=== PATIENT | male | born 2000 | race Hispanic/Latino ===

== ENCOUNTER 2025-04-28 16:42 | Inpatient (IN) | payer SELFPAY ==
[~2025-04-28] VITALS: Ht 167.6 cm; Wt 105.0 kg
[~2025-04-28 16:42] MED LIST: CETI1SOL17 PO; EPIN0.3P3 IJ; FAMO-136 PO; PRED20TA3 PO
[2025-04-28 17:55] LABS: IMMATURE GRANULOCYTE ABSOLUTE 0.02 K/uL (0-1); NUCLEATED RED BLOOD CELLS 0.0 % (0.0-0.19); PLATELET COUNT (AUTO) 207 K/uL (130-400); RED BLOOD CELL COUNT(AUTO) 5.00 MIL/uL (4.50-6.20); RED CELL DISTRIBUTION WIDTH 13.1 % (11.0-15.5); WHITE BLOOD COUNT (AUTO) 5.7 K/uL (4.8-10.8)
[2025-04-28 18:03] LABS: CREATININE 1.0 mg/dL (0.5-1.3); GLOMERULAR FILTR. RATE CALC 108.0 mL/min (>90); GLUCOSE,RANDOM 134.0 mg/dL (70-105); SODIUM SERUM 135.0 mmol/L (136-145); UREA NITROGEN, BLOOD 13.0 mg/dL (7-18)
[2025-04-28 18:12] LABS: ASPARTATE AMINOTRANSFERASE 52.0 U/L (10-37); TOTAL PROTEIN, SERUM 8.4 g/dL (6.0-8.3)
--- NOTE | 2025-04-28 18:13 | ERN ---
General Chief Complaint: Fever Stated Complaint: FEVERS, HIGH HEART RATES AT DR Time Seen by MD: 17:13 Time Seen by Midlevel: 17:13 Source: patient History of Present Illness Initial Comments 24-year-old male who presents to the emergency department due to a headache ongoing x6 days. Patient reports vomiting, cough, fever. Patient reports symptoms are initiated after going to the beach one day. Patient was seen by PCP today and referred to the emergency department for possible meningitis. Patient denies any neck pain, neck stiffness, vision changes, chest pain, recent travel or further associated symptoms. Has been taking ibuprofen and acetaminophen inconsistently. Denies significant past medical history. Allergies: Coded Allergies: No Known Drug Allergies (Unverified Allergy, Unknown, 12/10/21) Home Meds Active Scripts Epinephrine (Epipen 2-Abisai) 0.3 Mg/0.3 Ml Auto.injct, 0.3 MG IJ as needed, #2 CARTRIDGE Prov:EVA JEAN 12/10/21 Cetirizine HCl (Zyrtec Syrup 1 mg/1 ml) 1 Mg/1 Ml Solution, 10 MG PO BID for 5 Days, #120 ML Prov:EVA JEAN 12/10/21 Famotidine (Pepcid) 20 Mg Tablet, 20 MG PO BID, #30 TAB Prov:EVA JEAN 12/10/21 Prednisone (Prednisone) 20 Mg Tablet, 2 TAB PO AD for 5 Days, #10 TAB 0 Refills TAKE 1 TAB BY MOUTH THREE TIMES PER DAY X3 DAYS, THEN TAKE 1 TAB BY MOUTH TWICE A DAY X2 DAYS, THEN TAKE 1 TAB BY MOUTH ONCE A DAY X1 DAY. Prov:EVA JEAN 12/10/21 Past Medical History Past Medical History: No Pertinent History Medical History Other: Obese Past Surgical History: None Family History Family History: Negative Social History Social History: Negative ROS Dictation Constitutional: Positive for fever Negative for chills, and weight loss Eyes: Negative for injury, pain,redness, and discharge ENT: Positive for cough Negative for injury,pain or swelling Cardiovascular: Negative for chest pain, palpitations, and edema Respiratory: Negative for shortness of breath, cough, and wheezing, Abdomen/GI: Positive for vomiting Negative for abdominal pain, nausea, vomiting, diarrhea, and constipation Back: Negative for injury and pain : Negative for painful urination, bleeding or discharge MS/Extremity: Negative for injury and deformity Skin: Negative for rash, and discoloration Neuro: Positive for headache Negative for weakness, numbness, tingling, and seizure Psych: Negative for suicide ideation, homicidal ideation, and hallucinations Physical Exam Physical Exam Dictation General: awake, alert, no acute distress Head/Face: Normocephalic, atraumatic Eyes: PERRL, EOMI, normal conjuctiva ENT: oral cavity clear, TMs clear, oral mucosa moist Neck: Supple, normal range of motion Cardiovascular: RRR, normal S1/S2 Respiratory: CTAB, no respiratory distress, no rales or wheezes Abdomen: Soft, non-tender, non-distended, normal bowel sounds, no guarding or rebound. Skin: Warm, dry, normal turgor, no rash MS/Extremity: Pulses equal, no cyanosis, neurovascular intact, FROM Neuro: COAx4, GCS 15, strength 5/5, CN 2-12 intact, normal cerebellar exam, normal gait, Psych: Normal behavior, mood, and affect normal Results Laboratory and Microbiology Lab and Micro Result Labs Reviewed?: Yes EKG/XRAY/US/CT/MRI X-RAY Comment REASON: Fever ORDERING PHYSICIAN: CANDY BYRNE PROCEDURE: CXR1VW - CHEST 1VW EXAM: CR Chest, 1 View. CLINICAL HISTORY: Fever COMPARISON: None provided. FINDINGS: LUNGS: There is no mass, infiltrate, or acute pulmonary abnormality. PLEURAL SPACES: No evidence of pleural effusion or pneumothorax. MEDIASTINUM: The cardiomediastinal silhouette is within normal limits. BONES: No aggressive appearing osseous lesion seen. IMPRESSION: No acute cardiopulmonary pathology is evident. /[place] DICTATED BY: WOODROW MEDINA Jr., MD DATE: 04/28/252109 CT Scan Comment REASON: Headache ORDERING PHYSICIAN: CANDY BYRNE PROCEDURE: HEAD WO - CT HEAD/BRAIN W/O CONTRAST EXAM: CT Head Without IV contrast. CLINICAL HISTORY: Headache TECHNIQUE: Axial computed tomography images of the head/brain without intravenous contrast. CT scan done according to ALARA (as low as reasonably achievable). COMPARISON: None provided. FINDINGS: BRAIN: No evidence of acute hemorrhage. No mass lesion. No CT evidence for acute territorial infarct. No midline shift or extra-axial collections. VENTRICLES: No hydrocephalus. ORBITS: The orbits are unremarkable. SINUSES AND MASTOIDS: The paranasal sinuses and mastoid air cells are clear. BONES: No fracture. SOFT TISSUES: Unremarkable. IMPRESSION: No acute intracranial abnormality. /[place] DICTATED BY: RAYNE CHANEL MD DATE: 04/28/252107 MDM MDM: Differential diagnosis: Sepsis, viral illness, UTI, pneumonia Rationale: 24-year-old male who presents to the emergency department due to a headache ongoing x6 days. Patient reports vomiting, cough, fever. Patient reports symptoms are initiated after going to the beach one day. Patient was seen by PCP today and referred to the emergency department for possible meningitis. Patient denies any neck pain, neck stiffness, vision changes, chest pain, recent travel or further associated symptoms. Has been taking ibuprofen and acetaminophen inconsistently. Denies significant past medical history. Per initial vitals, fever and tachycardia, patient triggered sepsis. Labs obtained CBC is nonspecific. Chemistry indicates dehydration with hypochloremia 99, hyponatremia 135. Lactic acid 2.8, CRP 81, procalcitonin 0.90. UA negative for urinary tract infection. Influenza, SARs, strep negative. Chest x-ray indicates no acute cardiopulmonary abnormalities. Patient received IV fluids 30 mL/kg and acetaminophen. On re-examination no headache improvement therefore head CT was obtained with no acute intracranial abnormalities. Ketorolac administered, however on re-examination patient continued with headache. Pending febrile agglutinin test. Findings were discussed with patient and mother, low suspicion for meningitis. Lumbar puncture was discussed and offered to patient and mother, they agreed with admission but decided to hold off on the lumbar puncture. Case discussed with hospitalist who accepted admission. Previous outside records reviewed: Old ER visits. Risk of complication and/or morbidity or mortality of patient management: None Medications-Per medication reconciliation Need for hospitalization: Patient does meet criteria for hospitalization. Need for emergency major/minor surgery: No There are no social concerns with this patient. Prescription drug management Prescriptions will include symptomatic care Patient's prior external medical records from other ER visits were reviewed by me as indicated. Prior testing and results from previous visits were reviewed. Prior tests were taken into account with medical decision making and resource utilization, independent historian/historians were used to obtain complete medical history. I independently interpreted the test that were performed, results were reviewed by me and considered findings on radiology if ordered. Medical management and examination interpretation discussions were had by me with other qualified healthcare professionals as indicated for the patient's care. ED Course DX & DISP Disposition: Inpatient Decision to Admit Date: Apr 28, 2025 Departure Impression: Primary Impression: Sepsis Additional Impressions: Headache, Dehydration Condition: Stable Referrals: MAUREEN CERRATO MD (PCP) I performed the substantive portion of the visit. I have reviewed and personally made and approve the management plan that is documented in the notes by myself or the MARTIN. I acknowledge full responsibility for the patient's management plan. CANDY BYRNE Apr 28, 2025 18:13
--- NOTE | 2025-04-28 18:30 | NUR ---
PT MOVED FORM LOBBY INTO FAST RACK AT THIS TIME. ASSUMED CARE AT THIS TIME
[2025-04-28 19:04] LABS: RAPID GROUP A STREP negative (NEGATIVE)
[2025-04-28 19:09] LABS: APPEARANCE,URINE CLEAR (CLEAR); GLUCOSE, URINE (UA) NEGATIVE (NEGATIVE); LEUKOCYTE ESTERASE ,URINE NEGATIVE Leu/uL (NEGATIVE); NITRATE,URINE NEGATIVE (NEGATIVE); OCCULT BLOOD,URINE SMALL (NEGATIVE)
[2025-04-28] MEDS: [UNRECOGNIZED DRUG - OTHER] IV ONE (19:11)
[2025-04-28 19:15] LABS: COVID19 (SARS ANTIGEN RAPID) PRESUMPTIVE NEGATIVE (NEGATIVE); INFLUENZA TYPE A Negative For Type A (NEGATIVE); INFLUENZA TYPE B Negative For Type B (NEGATIVE)
--- NOTE | 2025-04-28 20:10 | HMCIMG ---
EXAM: CT Head Without IV contrast. CLINICAL HISTORY: Headache TECHNIQUE: Axial computed tomography images of the head/brain without intravenous contrast. CT scan done according to ALARA (as low as reasonably achievable). COMPARISON: None provided. FINDINGS: BRAIN: No evidence of acute hemorrhage. No mass lesion. No CT evidence for acute territorial infarct. No midline shift or extra-axial collections. VENTRICLES: No hydrocephalus. ORBITS: The orbits are unremarkable. SINUSES AND MASTOIDS: The paranasal sinuses and mastoid air cells are clear. BONES: No fracture. SOFT TISSUES: Unremarkable. IMPRESSION: No acute intracranial abnormality. /[place]
--- NOTE | 2025-04-28 20:11 | HMCIMG ---
EXAM: CR Chest, 1 View. CLINICAL HISTORY: Fever COMPARISON: None provided. FINDINGS: LUNGS: There is no mass, infiltrate, or acute pulmonary abnormality. PLEURAL SPACES: No evidence of pleural effusion or pneumothorax. MEDIASTINUM: The cardiomediastinal silhouette is within normal limits. BONES: No aggressive appearing osseous lesion seen. IMPRESSION: No acute cardiopulmonary pathology is evident. /[place]
--- NOTE | 2025-04-28 21:59 | HP ---
History of Present Illness Reason for Visit: fever History of Present Illness Mr. Siddiqui is a 24-year-old male that was seen and examined today on 04/28/2025. Patient is a good historian of personal health Patient states that he came to the emergency department with a chief complaint of fever. Onset was six days ago. Location is head. Duration is on and off. Character is described as feeling hot. There was no alleviating factors. There was no aggravating factors. Patient reports an associated headache. Past Medical History ADDITIONAL PAST MEDICAL HISTORY: [Denies] SOCIAL HISTORY: [Negative for smoking, alcohol use, drug use. Patient lives with his mom, Jerrica Ross. Patient is typically independent of all his ADLs. Patient denies difficulty pain is bills.] SURGICAL HISTORY: [Denies] Review of Systems General: Fever; No Chills, No Night Sweats, No Fatigue, No Malaise, No Appetite, No Other HEENT: No Head Aches, No Visual Changes, No Eye Pain, No Ear Pain, No Dysphasia, No Sinus Congestion, No Post Nasal Drip, No Sore Throat, No Other Pulmonary: No Dyspnea, No Cough, No Pleuritic Chest Pain, No Other Cardiovascular: No: Chest Pain, Palpitations, Orthopnea, Paroxysmal Noc. Dyspnea, Edema, Lt Headedness, Other Gastrointestinal: No: Nausea, Vomiting, Abdominal Pain, Diarrhea, Constipation, Melena, Hematochezia, Other Genitourinary: No Dysuria, No Frequency, No Incontinence, No Hematuria, No Retention, No Other Skin: No Urticaria, No Rash, No Other Neurological: Other (Headache) Allergies: Coded Allergies: No Known Drug Allergies (Unverified Allergy, Unknown, 12/10/21) Scheduled Cetirizine HCl (Zyrtec Syrup 1 mg/1 ml), 10 MG PO BID Epinephrine (Epipen 2-Abisai), 0.3 MG IJ as needed Famotidine (Pepcid), 20 MG PO BID Prednisone (Prednisone), 2 TAB PO AD Exam Vital Signs Vital Signs Date Time Temp Pulse Resp B/P (MAP) Pulse Ox O2 Delivery O2 Flow Rate FiO2 04/28/25 21:55 98.2 106 18 122/71 98 Room Air* 0 21 General Appearance: Alert, Oriented X3, Cooperative, mild distress HEENT: Atraumatic, EOMI Respiratory: Clear to auscultation, Normal air movement, NL respiratory effort Cardiovascular: Normal S1, Normal S2, Other (Positive tachycardia) Abdominal: Normal bowel sounds, Soft, No tenderness, No hepatospenomegaly Extremities: No edema Skin: No breakdown, No significant lesion Neuro: Normal speech, Strength at 5/5 X4 ext, Sensation intact, Cranial nerves 3-12 NL Psych/Mental Status: Mental status NL, Mood NL, Thoughts/Content NL Assessment/Plan ASSESSMENT: [ Sepsis, POA, by clinical criteria temperature 103.3, heart rate 137, lactic acid 2.8, unknown source] PLAN: [ Admit patient to medical floor as inpatient status. Patient received 0.9% NS 30 mL/kg Start empiric antibiotic therapy with Zosyn Check procalcitonin, follow up with the results Repeat lactic acid in a.m. Check blood culture, follow up with the results Reviewed patient's influenza screen which was negative Reviewed patient's COVID screen which was negative Patient was also negative for rapid strep antigen Reviewed patient's urinalysis which was unremarkable Reviewed patient's chest x-ray which was unremarkable Reviewed patient's CT of the head which was unremarkable Consult infectious disease service, Dr. Miller for evaluation and further recommendations. GI prophylaxis, famotidine DVT prophylaxis, Lovenox ADVANCED CARE PLANNING 1. Which of the following were discussed? Hospice Care - Yes Therapeutic options - yes Advance Directives - Yes - patient states he does not have any advance directives in place at this time, however his mother, Jerrica can make decisions for him if he becomes unable. Other discussions - patient wishes to remain a full code at this time 2. Discussed with who? Patient 3. Voluntary nature of this service was explained to the patient? Yes 4. Amount of time spent - ___16 minutes____ 5. Reviewed by Physician? (if this service was performed by NPP) Yes This document was generated in part using voice recognition software, occasional wrong word or sound alike substitutions may have occurred due to the inherent limitations of voice recognition software. Read the chart carefully and recognize using context, where the substitutions have occurred. Although every effort was made to edit the content, field research assistant and typing errors may occur ATTESTATION BY PHYSICIAN I have seen and examined the patient. I reviewed the documentation, medical decision making, and treatment plan as noted by the mid-level provider above. I agree with the findings and plan of care. [facility] Apr 28, 2025 21:59
[2025-04-28] MEDS: ZOSYN 3.375GM +NS 50ML IV SCH (22:03)
--- NOTE | 2025-04-28 22:59 | NUR ---
Gerard lizarraga in [facility] - 04/28/25 at 2300 by [email or web address] PATIENT PLACED IN HOSPITAL BED AT THIS TIME./[place]
--- NOTE | 2025-04-29 04:38 | NUR ---
PT IS DRY HEVING NO VOMIT ADMINISTERED ZOFRN FOR NAUSEA
[2025-04-29 07:17] LABS: IMMATURE GRANULOCYTE ABSOLUTE 0.03 K/uL (0-1); NUCLEATED RED BLOOD CELLS 0.0 % (0.0-0.19); PLATELET COUNT (AUTO) 180 K/uL (130-400); RED BLOOD CELL COUNT(AUTO) 4.62 MIL/uL (4.50-6.20); RED CELL DISTRIBUTION WIDTH 13.2 % (11.0-15.5); WHITE BLOOD COUNT (AUTO) 5.5 K/uL (4.8-10.8)
[2025-04-29 07:32] LABS: CREATININE 0.9 mg/dL (0.5-1.3); GLOMERULAR FILTR. RATE CALC 122.0 mL/min (>90); GLUCOSE,RANDOM 106.0 mg/dL (70-105); PHOSPHORUS 2.1 mg/dL (2.5-4.9); SODIUM SERUM 135.0 mmol/L (136-145); UREA NITROGEN, BLOOD 12.0 mg/dL (7-18)
[2025-04-29] MEDS: FAMOTIDINE 20MG TAB PO SCH (09:59)
[2025-04-29] MEDS: ENOXAPARIN SODIUM 40 MG/0.4 ML SYRINGE SQ SCH (09:59)
--- NOTE | 2025-04-29 09:59 | CONS ---
INFECTIOUS DISEASE CONSULTATION NOTE Date of Service: Apr 29, 2025 Reason for Consultation: Sepsis unknown origin Requesting Physician: Julián Martínez NP HISTORY OF PRESENT ILLNESS: Patient is a 24-year-old male with no pertinent past medical history, who pres ented to the emergency room with a 6 day history of fever and headache. The fever is described as intermittent in frequency, responsive to acetaminophen. He also reports a diffuse throbbing headache that began on the 1st day of illness and has progressively worsened. The headache is rated as 9/10 in intensity located predominantly in the frontal region without radiation. It is mildly relieved by [id number] medications. He denies photophobia, neck stiffness, nausea, vomiting or focal neurological symptoms. He also denies recent sick contacts, but he did return from a trip to the beach prior to the onset of the symptoms. Denies any rash, cough, sore throat or gastrointestinal symptoms. Denies any past medical problems and only takes Tylenol as needed. He does not smoke, drink alcohol or use drugs. Patient states that the intensity of the headache worsened yesterday so he was sent to the emergency room by his PCP for evaluation and management. On evaluation, patient remains febrile with a temperature of 100.4 , all other vital signs were unremarkable. Labs showed a WBC of 5.5, procalcitonin and CRP were elevated at 0.9 and 81 respectively. Urinalysis, Influenza, Covid and Strep were all negative. Chest x ray and head CT were unremarkable as well. Results of urine culture, blood culture and febrile agglutinin test are still pending. Patient is currently on Zosyn 3.375mg IV. Will order Murine thyphus in order to rule out Rickettsia as a cause of the fever. Will start patient on Doxycycline 100mg PO BID as well. REVIEW OF SYSTEMS CONSTITUTIONAL: fever, chills, or fatigue. HEAD/FACE: Headache No signs of trauma. EENT: Denies eye pain, blurred vision, double vision, or light sensitivity. RESPIRATORY: Denies shortness of breath, cough, wheezing CARDIOVASCULAR: Denies chest pain, palpitation, syncope GASTROINTESTINAL/ABDOMINAL: Denies abdominal pain, constipation, diarrhea, nausea or vomiting GENITOURINARY: Denies dysuria or hematuria. MUSCULOSKELETAL: Denies joint pain, tenderness, or trauma. INTEGUMENTARY: Denies rash or itchiness NEUROLOGICAL/PSYCH: Denies anxiety, depression, heat or cold intolerance. PAST MEDICAL HISTORY: None PAST SURGICAL HISTORY: None PAST SOCIAL HISTORY: Denies smoking, drinking alcohol or use of illegal drugs FAMILY HISTORY: Mother and sister have Bronchial asthma. Coded Allergies: No Known Drug Allergies (Unverified Allergy, Unknown, 12/10/21) PHYSICAL EXAM EYES: Anicteric. Pupils equal and reactive. HENT: No oral thrush seen, moist Oral mucosa NECK: Supple, no JVD or thyromegaly. LUNGS: Good air entry. No rales, no rhonchi. CARDIOVASCULAR: S1, S2 regular. No murmur heard. ABDOMEN: Soft, non tender, bowel sounds present, no organomegaly CENTRAL NERVOUS SYSTEM: Awake, alert, oriented x 3. No focal deficits. SKIN: No rashes, no swelling. LYMPHATICS: No peripheral lymphadenopathy MUSCULOSKELETAL: No joint swelling, erythema or tenderness. EXTREMITIES: No cyanosis or clubbing BACK: No deformity, no pressure ulcer. GENITOURINARY: No dysuria or hematuria Vital Sign (Last 24 Hours) 04/29/25 04:23 Temp 100.8 Pulse 96 Resp 16 B/P (MAP) 119/74 Pulse Ox 98 O2 Delivery Room Air* O2 Flow Rate 0 FiO2 21 LABS: Laboratory: Test 04/29/25 07:08 04/28/25 23:33 04/28/25 19:53 04/28/25 18:29 Range/Units White Blood Count 5.5 4.8-10.8 K/uL Red Blood Count 4.62 4.50-6.20 MIL/uL Hemoglobin 13.5 L 14.0-18.0 g/dL Hematocrit 40.0 L 42-54 % Mean Corpuscular Volume 86.6 79-99 fL Mean Corpuscular Hemoglobin 29.2 27.0-33.0 pg Mean Corpuscular Hemoglobin Concent 33.8 32.0-36.0 g/dL Red Cell Distribution Width 13.2 11.0-15.5 % Platelet Count 180 130-400 K/uL Mean Platelet Volume 10.9 H 7.5-10.5 fL Immature Granulocyte % (Auto) 0.5 0-1 % Neutrophils (%) (Auto) 69.6 40.0-77.0 % Lymphocytes (%) (Auto) 23.0 21.0-51.0 % Monocytes (%) (Auto) 6.5 3.0-13.0 % Eosinophils (%) (Auto) 0.0 0.0-8.0 % Basophils (%) (Auto) 0.4 0.0-5.0 % Neutrophils # (Auto) 3.9 1.8-7.7 K/uL Lymphocytes # (Auto) 1.3 1.0-4.8 K/uL Monocytes # (Auto) 0.4 0.1-1.0 K/uL Eosinophils # (Auto) 0.00 0.00-0.70 K/uL Basophils # (Auto) 0.02 0.00-0.20 K/uL Absolute Immature Granulocyte (auto 0.03 0-1 K/uL Nucleated Red Blood Cells 0.0 0.0-0.19 % Sodium Level 135 L 136-145 mmol/L Potassium Level 4.1 3.5-5.1 mmol/L Chloride Level 100 L 101-111 mmol/L Carbon Dioxide Level 29 21-32 mmol/L Blood Urea Nitrogen 12 7-18 mg/dL Creatinine 0.9 0.5-1.3 mg/dL Glomerular Filtration Rate Calc 122 >90 mL/min Random Glucose 106 H 70-105 mg/dL Total Calcium 8.4 L 8.5-10.1 mg/dL Phosphorus Level 2.1 L 2.5-4.9 mg/dL Magnesium Level 1.60 L 1.80-2.40 mg/dL Lactic Acid Level 1.3 0.8-2.5 mmol/L C-Reactive Protein, Quantitative 81.00 H 0.5-3.0 mg/L Procalcitonin 0.90 H 0.05-0.5 ng/mL Urine Color YELLOW YELLOW Urine Appearance CLEAR CLEAR Urine pH 5.5 5.0-8.0 Urine Specific [place] 1.028 1.001-1.031 Urine Protein 30 H NEGATIVE mg/dL Urine Glucose (UA) NEGATIVE NEGATIVE mg/dL Urine Ketones NEGATIVE NEGATIVE mg/dL Urine Occult Blood SMALL H NEGATIVE Urine Nitrate NEGATIVE NEGATIVE Urine Bilirubin NEGATIVE NEGATIVE mg/dL Urine Urobilinogen 3 H 0.2-1.0 mg/dL Urine Leukocyte Esterase NEGATIVE NEGATIVE Roberto/uL Urine RBC 2-5 H 0-1 /HPF Urine WBC 2-5 H 0-1 /HPF Urine Bacteria RARE None Seen /HPF Influenza Type A Antigen Negative For Type A NEGATIVE Influenza Type B Antigen Negative For Type B NEGATIVE SARS-CoV-2 Antigen (Rapid) PRESUMPTIVE NEGATIVE NEGATIVE Group A Streptococcus Rapid negative NEGATIVE Test 04/28/25 17:50 Range/Units Total Bilirubin 0.5 0.2-1.0 mg/dL Direct Bilirubin 0.1 0.0-0.3 mg/dL Aspartate Amino Transf (AST/SGOT) 52 H 10-37 U/L Alanine Aminotransferase (ALT/SGPT) 85 H 12-78 U/L Alkaline Phosphatase 127 50-136 U/L Total Protein 8.4 H 6.0-8.3 g/dL Albumin 3.5 3.5-5.0 g/dL Lipase 37 16-77 U/L DIAGNOSTICS / RADIOLOGY: PATIENT: SONA GRACE MR#: [id number] : 2000 SEX: M AGE: 24 LOCATION: [facility] ORDER 28 STATUS: REG REPORT#: [id number] SERVICE 27 REASON: Headache ORDERING PHYSICIAN: CANDY BYRNE PROCEDURE: HEAD WO - CT HEAD/BRAIN W/O CONTRAST EXAM: CT Head Without IV contrast. CLINICAL HISTORY: Headache TECHNIQUE: Axial computed tomography images of the head/brain without intravenous contrast. CT scan done according to ALARA (as low as reasonably achievable). COMPARISON: None provided. FINDINGS: BRAIN: No evidence of acute hemorrhage. No mass lesion. No CT evidence for acute territorial infarct. No midline shift or extra-axial collections. VENTRICLES: No hydrocephalus. ORBITS: The orbits are unremarkable. SINUSES AND MASTOIDS: The paranasal sinuses and mastoid air cells are clear. BONES: No fracture. SOFT TISSUES: Unremarkable. IMPRESSION: No acute intracranial abnormality. /[place] DICTATED BY: RAYNE CHANEL MD DATE: 04/28/252107 ELECTRONICALLY SIGNED BY: RAYNE CHANEL MD DATE: 04/28/252107 PATIENT: SONA GRACE MR#: [id number] : 2000 SEX: M AGE: 24 LOCATION: [facility] ORDER 33 STATUS: REG ER REPORT#: [id number] SERVICE 173 REASON: Fever ORDERING PHYSICIAN: CANDY BYRNE PROCEDURE: CXR1VW - CHEST 1VW EXAM: CR Chest, 1 View. CLINICAL HISTORY: Fever COMPARISON: None provided. FINDINGS: LUNGS: There is no mass, infiltrate, or acute pulmonary abnormality. PLEURAL SPACES: No evidence of pleural effusion or pneumothorax. MEDIASTINUM: The cardiomediastinal silhouette is within normal limits. BONES: No aggressive appearing osseous lesion seen. IMPRESSION: No acute cardiopulmonary pathology is evident. /[place] DICTATED BY: WOODROW MEDINA Jr., MD DATE: 04/28/252109 ELECTRONICALLY SIGNED BY: WOODROW MEDINA Jr., MD DATE: 04/28/252109 ASSESSMENT: Possible Viral syndrome POA Possible Rickettsial infection POA Elevated liver enzymes PLAN: *Doxycycline 100mg PO BID ordered. *Continue with Zosyn 3.375g IV as ordered. *Murine Thyphus ordered to rule out Rickettsia as a cause of fever. *Pending urine and blood culture results *Pending febrile agglutinin results. *Consult infectious disease service, Dr. Miller for evaluation and further recommendations. *GI prophylaxis, famotidine *DVT prophylaxis, Lovenox ATTESTATION BY PHYSICIAN I have seen and examined the patient. I reviewed the documentation, medical decision making, and treatment plan as noted by the resident provider above. I agree with the findings and plan of care. Addy Miller MD OBI,SARAHI De La Cruz MD Apr 29, 2025 09:59
--- NOTE | 2025-04-29 15:28 | PN ---
[facility] PROGRESS NOTE Date of Service: Apr 29, 2025 Time of Service: 15:27 SUBJECTIVE: 04/29/25: Patient was examined today in the ED room with his girlfriend present. Patient's headache has improved after being placed on Toradol. Patient rremains febrile with a temperature of 100.4 , all other vital signs were un remarkable. Labs showed a WBC of 5.5, procalcitonin and CRP were elevated at 0.9 and 81 respectively. Urinalysis, Influenza, Covid and Strep were all negative. Chest x ray and head CT were unremarkable as well. Results of urine culture, blood culture and febrile agglutinin test are still pending. Patient is currently on Zosyn 3.375mg IV. Infectious disease was consulted for further evaluation and management. REVIEW OF SYSTEMS CONSTITUTIONAL: fever, chills, denies fatigue NEUROLOGICAL: Headache, Denies amaurosis fugax, motor weakness, sensory deficit, vertigo/spinning sensation, gait abnormalities, or tremors. ENT: No hearing loss, otalgia, otorrhea, rhinitis, rhinorrhea, hoarseness, or sore throat. CARDIOVASCULAR: Denies any exertional angina, dyspnea on exertion, orthopnea, paroxysmal nocturnal dyspnea, palpitations, life-threatening arrhythmias, claudication. PULMONARY: Cough, Denies any shortness of breath, phlegm/sputum, hemoptysis, pleuritic chest pain. GASTROINTESTINAL: Denies abdominal pain, constipation, diarrhea, nausea or vomiting GENITOURINARY: Denies frequency, urgency, nocturia, hematuria or incontinence ENDOCRINOLOGIC: Denies polyuria, polydipsia, polyphagia or heat/cold intolerances. DERMATOLOGIC: Denies rashes or pruritus. PSYCHIATRIC: Denies any suicidal or homicidal ideation. Denies hallucinations. PHYSICAL EXAM GENERAL APPEARANCE: The patient is awake, alert, and oriented, in no acute cardiopulmonary distress. NEUROLOGICAL: Motor is 5/5 in bilateral upper and lower extremities proximal to distal. No sensory deficits. HEENT: Face is symmetric. Pupils are equal and reactive. Extraocular movements are intact. NECK: Supple. No JVD. No thyromegaly. No submental, submandibular, pre- /postauricular, occipital or supraclavicular lymphadenopathy. CHEST: Normal chest expansion. No Telemetry. LUNGS: Absence of any rales, rhonchi or any wheezing. CARDIOVASCULAR: Regular. S1 and S2 normal. No appreciable rubs, murmurs or gallops. ABDOMEN: Soft, nontender, and nondistended. There is no rebound, voluntary guarding, or rigidity. : Deferred. No Garcias. EXTREMITIES: Non-edematous and not cyanotic. No clubbing. Good capillary refill. SKIN: No skin breakdown. Vital Signs (last 8hr) Date Time Temp Pulse Resp B/P (MAP) Pulse Ox O2 Delivery O2 Flow Rate FiO2 04/29/25 10:00 103.5 LABS: Laboratory: Test 04/29/25 14:28 04/29/25 09:27 04/29/25 07:08 04/28/25 18:29 Range/Units Lactic Acid Level 1.2 0.8-2.5 mmol/L C-Reactive Protein, Quantitative 91.00 H 0.5-3.0 mg/L Procalcitonin 0.99 H 0.05-0.5 ng/mL White Blood Count 5.5 4.8-10.8 K/uL Red Blood Count 4.62 4.50-6.20 MIL/uL Hemoglobin 13.5 L 14.0-18.0 g/dL Hematocrit 40.0 L 42-54 % Mean Corpuscular Volume 86.6 79-99 fL Mean Corpuscular Hemoglobin 29.2 27.0-33.0 pg Mean Corpuscular Hemoglobin Concent 33.8 32.0-36.0 g/dL Red Cell Distribution Width 13.2 11.0-15.5 % Platelet Count 180 130-400 K/uL Mean Platelet Volume 10.9 H 7.5-10.5 fL Immature Granulocyte % (Auto) 0.5 0-1 % Neutrophils (%) (Auto) 69.6 40.0-77.0 % Lymphocytes (%) (Auto) 23.0 21.0-51.0 % Monocytes (%) (Auto) 6.5 3.0-13.0 % Eosinophils (%) (Auto) 0.0 0.0-8.0 % Basophils (%) (Auto) 0.4 0.0-5.0 % Neutrophils # (Auto) 3.9 1.8-7.7 K/uL Lymphocytes # (Auto) 1.3 1.0-4.8 K/uL Monocytes # (Auto) 0.4 0.1-1.0 K/uL Eosinophils # (Auto) 0.00 0.00-0.70 K/uL Basophils # (Auto) 0.02 0.00-0.20 K/uL Absolute Immature Granulocyte (auto 0.03 0-1 K/uL Nucleated Red Blood Cells 0.0 0.0-0.19 % Sodium Level 135 L 136-145 mmol/L Potassium Level 4.1 3.5-5.1 mmol/L Chloride Level 100 L 101-111 mmol/L Carbon Dioxide Level 29 21-32 mmol/L Blood Urea Nitrogen 12 7-18 mg/dL Creatinine 0.9 0.5-1.3 mg/dL Glomerular Filtration Rate Calc 122 >90 mL/min Random Glucose 106 H 70-105 mg/dL Total Calcium 8.4 L 8.5-10.1 mg/dL Phosphorus Level 2.1 L 2.5-4.9 mg/dL Magnesium Level 1.60 L 1.80-2.40 mg/dL Urine Color YELLOW YELLOW Urine Appearance CLEAR CLEAR Urine pH 5.5 5.0-8.0 Urine Specific [place] 1.028 1.001-1.031 Urine Protein 30 H NEGATIVE mg/dL Urine Glucose (UA) NEGATIVE NEGATIVE mg/dL Urine Ketones NEGATIVE NEGATIVE mg/dL Urine Occult Blood SMALL H NEGATIVE Urine Nitrate NEGATIVE NEGATIVE Urine Bilirubin NEGATIVE NEGATIVE mg/dL Urine Urobilinogen 3 H 0.2-1.0 mg/dL Urine Leukocyte Esterase NEGATIVE NEGATIVE Roberto/uL Urine RBC 2-5 H 0-1 /HPF Urine WBC 2-5 H 0-1 /HPF Urine Bacteria RARE None Seen /HPF Influenza Type A Antigen Negative For Type A NEGATIVE Influenza Type B Antigen Negative For Type B NEGATIVE SARS-CoV-2 Antigen (Rapid) PRESUMPTIVE NEGATIVE NEGATIVE Group A Streptococcus Rapid negative NEGATIVE Test 04/28/25 17:50 Range/Units Total Bilirubin 0.5 0.2-1.0 mg/dL Direct Bilirubin 0.1 0.0-0.3 mg/dL Aspartate Amino Transf (AST/SGOT) 52 H 10-37 U/L Alanine Aminotransferase (ALT/SGPT) 85 H 12-78 U/L Alkaline Phosphatase 127 50-136 U/L Total Protein 8.4 H 6.0-8.3 g/dL Albumin 3.5 3.5-5.0 g/dL Lipase 37 16-77 U/L Current Medications Medications (Trade) Dose Ordered Sig/Nikole Route PRN Reason Start Time Stop Time Status Last Admin Dose Admin Acetaminophen (TYLenol 325MG TAB) 650 mg Q6H PRN PO TEMPERATURE GREATER THAN 101.5 04/28/25 22:00 05/28/25 21:59 04/29/25 10:00 650 MG Doxycycline Hyclate (Doxycycline Hyclate) 100 mg BID PO 04/29/25 21:00 05/09/25 20:59 Enoxaparin Sodium (Lovenox) 40 mg DAILY SQ 04/29/25 09:00 05/29/25 08:59 04/29/25 09:59 40 MG Famotidine (Pepcid 20mg Tab) 20 mg DAILY PO 04/29/25 09:00 05/29/25 08:59 04/29/25 09:59 20 MG Hydralazine HCl (APRESOLine 20MG INJ) 10 mg Q6H PRN IV For:SBP above 160;DBP above 90 04/28/25 22:00 05/28/25 21:59 Ketorolac Tromethamine (toRADol) 15 mg Q6H PRN IV MODERATE PAIN (4-6) 04/29/25 12:00 05/04/25 11:59 04/29/25 12:06 15 MG Morphine Sulfate (morPHINE 4MG SYG) 4 mg Q4H PRN IVP SEVERE PAIN (7-10) 04/28/25 22:00 05/05/25 21:59 Ondansetron HCl (zoFRAN 4MG INJ) 4 mg Q6H PRN IV NAUSEA/VOMITING 04/28/25 22:00 05/28/25 21:59 04/29/25 04:37 4 MG Piperacillin Sod/ Tazobactam Sod (Zosyn 3.375gm+NS 50ml) 3.375 gm Q8H IV 04/28/25 22:00 05/08/25 21:59 04/29/25 06:07 3.375 [facility] / RADIOLOGY: [address] [address] IMAGING REPORT Signed PATIENT: SONA GRACE MR#: [id number] : 2000 SEX: M AGE: 24 LOCATION: [facility] ORDER 28 STATUS: REG REPORT#: [id number] SERVICE 27 REASON: Headache ORDERING PHYSICIAN: CANDY BYRNE PROCEDURE: HEAD WO - CT HEAD/BRAIN W/O CONTRAST EXAM: CT Head Without IV contrast. CLINICAL HISTORY: Headache TECHNIQUE: Axial computed tomography images of the head/brain without intravenous contrast. CT scan done according to ALARA (as low as reasonably achievable). COMPARISON: None provided. FINDINGS: BRAIN: No evidence of acute hemorrhage. No mass lesion. No CT evidence for acute territorial infarct. No midline shift or extra-axial collections. VENTRICLES: No hydrocephalus. ORBITS: The orbits are unremarkable. SINUSES AND MASTOIDS: The paranasal sinuses and mastoid air cells are clear. BONES: No fracture. SOFT TISSUES: Unremarkable. IMPRESSION: No acute intracranial abnormality. /[place] DICTATED BY: RAYNE CHANEL MD DATE: 04/28/252107 ELECTRONICALLY SIGNED BY: RAYNE CHANEL MD DATE: 04/28/252107 ASSESSMENT: Headache and fever, cause unkown POA SIRS With acute organ dysfunction, lactic acidosis POA PLAN: Headache and fever, cause unkown POA Patient recieveing Tylenol for fever Patient recieving Toradol for headache Urinalysis, Influenza, Covid and Strep were all negative. Chest x ray and head CT were unremarkable as well. Results of urine culture, blood culture and febrile agglutinin test are still pending. Consult infectious disease service SIRS With acute organ dysfunction POA Patient came in with temp over 103, Pulse 137, RR at 18 and lactic acid at 2.8 Urinalysis, Influenza, Covid and Strep were all negative. Chest x ray and head CT were unremarkable as well. Results of urine culture, blood culture and febrile agglutinin test are still pending. I have seen and examined the patient, reviewed the above documentation, participated in medical decision making, made necessary modifications, and agree with the treatment plan as documented by my mid-level provider above. Garry Hodge MD, ABHINAV MD Apr 29, 2025 15:28
--- NOTE | 2025-04-29 15:38 | NUR ---
DCP: HOME Pt currently lives with his parents in their home. Pt does not have any DME, home health, or provider services. Pt is able to complete ADLs independently. Pt currently works at [employer]. PCP is Dr. Faye Palacio. At ME pt will want to go home and family can assist with transportation. Addendum: 04/29/25 at 1548 by JANAE AU SS Amended: Links added.
[2025-04-29] MEDS: DOXYCYCLINE HYCLATE 100 MG TABLET PO ONE (16:25)
[2025-04-29] MEDS: DOXYCYCLINE HYCLATE 100 MG TABLET PO SCH (20:47)
[2025-04-29 22:40] VITALS: BP 130/73; PULSE 113; RESP 20; TEMP 100.1
[2025-04-30] VITALS (17 sets, daily range): BP systolic 113–179; BP diastolic 62–79; PULSE 95–123; RESP 18–22; TEMP 98–102.7; O2SAT 97
--- NOTE | 2025-04-30 00:11 | PN ---
[facility] PROGRESS NOTE Date of Service: Apr 29, 2025 Time of Service: 23:08 SUBJECTIVE: 04/29/25: Patient was examined today in the ED room with his girlfriend present. Patient's headache has improved after being placed on Toradol. Patient rremains febrile with a temperature of 100.4 , all other vital signs were un remarkable. Labs showed a WBC of 5.5, procalcitonin and CRP were elevated at 0.9 and 81 respectively. Urinalysis, Influenza, Covid and Strep were all negative. Chest x ray and head CT were unremarkable as well. Results of urine culture, blood culture and febrile agglutinin test are still pending. Patient is currently on Zosyn 3.375mg IV. Infectious disease was consulted for further evaluation and management. REVIEW OF SYSTEMS CONSTITUTIONAL: fever, chills, denies fatigue. HEAD/FACE: Headache No signs of trauma. EENT: Denies eye pain, blurred vision, double vision, or light sensitivity. RESPIRATORY: Cough, Denies shortness of breath, wheezing CARDIOVASCULAR: Denies chest pain, palpitation, syncope GASTROINTESTINAL/ABDOMINAL: Denies abdominal pain, constipation, diarrhea, nausea or vomiting GENITOURINARY: Denies dysuria or hematuria. MUSCULOSKELETAL: Denies joint pain, tenderness, or trauma. INTEGUMENTARY: Denies rash or itchiness NEUROLOGICAL/PSYCH: Denies anxiety, depression, heat or cold intolerance. PHYSICAL EXAM GENERAL APPEARANCE: The patient is awake, alert, and oriented, in no acute cardiopulmonary distress. NEUROLOGICAL: Motor is 5/5 in bilateral upper and lower extremities proximal to distal. No sensory deficits. HEENT: Face is symmetric. Pupils are equal and reactive. Extraocular movements are intact. NECK: Supple. No JVD. No thyromegaly. No submental, submandibular, pre- /postauricular, occipital or supraclavicular lymphadenopathy. CHEST: Normal chest expansion. No Telemetry. LUNGS: Absence of any rales, rhonchi or any wheezing. CARDIOVASCULAR: Regular. S1 and S2 normal. No appreciable rubs, murmurs or gallops. ABDOMEN: Soft, nontender, and nondistended. There is no rebound, voluntary guarding, or rigidity. : Deferred. No Garcias. EXTREMITIES: Non-edematous and not cyanotic. No clubbing. Good capillary refill. warm to touch SKIN: No skin breakdown. Vital Signs (last 8hr) Date Time Temp Pulse Resp B/P (MAP) Pulse Ox O2 Delivery O2 Flow Rate FiO2 04/29/25 22:21 100.4 115 16 127/77 95 Room Air* 0 04/29/25 20:00 100.2 120 16 135/79 97 Room Air* 0 04/29/25 16:40 102.4 LABS: Laboratory: Test 04/29/25 14:28 04/29/25 09:27 04/29/25 07:08 04/28/25 18:29 Range/Units Lactic Acid Level 1.2 0.8-2.5 mmol/L C-Reactive Protein, Quantitative 91.00 H 0.5-3.0 mg/L Procalcitonin 0.99 H 0.05-0.5 ng/mL White Blood Count 5.5 4.8-10.8 K/uL Red Blood Count 4.62 4.50-6.20 MIL/uL Hemoglobin 13.5 L 14.0-18.0 g/dL Hematocrit 40.0 L 42-54 % Mean Corpuscular Volume 86.6 79-99 fL Mean Corpuscular Hemoglobin 29.2 27.0-33.0 pg Mean Corpuscular Hemoglobin Concent 33.8 32.0-36.0 g/dL Red Cell Distribution Width 13.2 11.0-15.5 % Platelet Count 180 130-400 K/uL Mean Platelet Volume 10.9 H 7.5-10.5 fL Immature Granulocyte % (Auto) 0.5 0-1 % Neutrophils (%) (Auto) 69.6 40.0-77.0 % Lymphocytes (%) (Auto) 23.0 21.0-51.0 % Monocytes (%) (Auto) 6.5 3.0-13.0 % Eosinophils (%) (Auto) 0.0 0.0-8.0 % Basophils (%) (Auto) 0.4 0.0-5.0 % Neutrophils # (Auto) 3.9 1.8-7.7 K/uL Lymphocytes # (Auto) 1.3 1.0-4.8 K/uL Monocytes # (Auto) 0.4 0.1-1.0 K/uL Eosinophils # (Auto) 0.00 0.00-0.70 K/uL Basophils # (Auto) 0.02 0.00-0.20 K/uL Absolute Immature Granulocyte (auto 0.03 0-1 K/uL Nucleated Red Blood Cells 0.0 0.0-0.19 % Sodium Level 135 L 136-145 mmol/L Potassium Level 4.1 3.5-5.1 mmol/L Chloride Level 100 L 101-111 mmol/L Carbon Dioxide Level 29 21-32 mmol/L Blood Urea Nitrogen 12 7-18 mg/dL Creatinine 0.9 0.5-1.3 mg/dL Glomerular Filtration Rate Calc 122 >90 mL/min Random Glucose 106 H 70-105 mg/dL Total Calcium 8.4 L 8.5-10.1 mg/dL Phosphorus Level 2.1 L 2.5-4.9 mg/dL Magnesium Level 1.60 L 1.80-2.40 mg/dL Urine Color YELLOW YELLOW Urine Appearance CLEAR CLEAR Urine pH 5.5 5.0-8.0 Urine Specific [place]alie 1.028 1.001-1.031 Urine Protein 30 H NEGATIVE mg/dL Urine Glucose (UA) NEGATIVE NEGATIVE mg/dL Urine Ketones NEGATIVE NEGATIVE mg/dL Urine Occult Blood SMALL H NEGATIVE Urine Nitrate NEGATIVE NEGATIVE Urine Bilirubin NEGATIVE NEGATIVE mg/dL Urine Urobilinogen 3 H 0.2-1.0 mg/dL Urine Leukocyte Esterase NEGATIVE NEGATIVE Roberto/uL Urine RBC 2-5 H 0-1 /HPF Urine WBC 2-5 H 0-1 /HPF Urine Bacteria RARE None Seen /HPF Influenza Type A Antigen Negative For Type A NEGATIVE Influenza Type B Antigen Negative For Type B NEGATIVE SARS-CoV-2 Antigen (Rapid) PRESUMPTIVE NEGATIVE NEGATIVE Group A Streptococcus Rapid negative NEGATIVE Test 04/28/25 17:50 Range/Units Total Bilirubin 0.5 0.2-1.0 mg/dL Direct Bilirubin 0.1 0.0-0.3 mg/dL Aspartate Amino Transf (AST/SGOT) 52 H 10-37 U/L Alanine Aminotransferase (ALT/SGPT) 85 H 12-78 U/L Alkaline Phosphatase 127 50-136 U/L Total Protein 8.4 H 6.0-8.3 g/dL Albumin 3.5 3.5-5.0 g/dL Lipase 37 16-77 U/L Current Medications Medications (Trade) Dose Ordered Sig/Nikole Route PRN Reason Start Time Stop Time Status Last Admin Dose Admin Acetaminophen (TYLenol 325MG TAB) 650 mg Q6H PRN PO TEMPERATURE GREATER THAN 101.5 04/28/25 22:00 05/28/25 21:59 04/29/25 16:40 650 MG Doxycycline Hyclate (Doxycycline Hyclate) 100 mg BID PO 04/29/25 21:00 05/09/25 20:59 04/29/25 20:47 100 MG Enoxaparin Sodium (Lovenox) 40 mg DAILY SQ 04/29/25 09:00 05/29/25 08:59 04/29/25 09:59 40 MG Famotidine (Pepcid 20mg Tab) 20 mg DAILY PO 04/29/25 09:00 05/29/25 08:59 04/29/25 09:59 20 MG Hydralazine HCl (APRESOLine 20MG INJ) 10 mg Q6H PRN IV For:SBP above 160;DBP above 90 04/28/25 22:00 05/28/25 21:59 Ketorolac Tromethamine (toRADol) 15 mg Q6H PRN IV MODERATE PAIN (4-6) 04/29/25 12:00 05/04/25 11:59 04/29/25 20:47 15 MG Morphine Sulfate (morPHINE 4MG SYG) 4 mg Q4H PRN IVP SEVERE PAIN (7-10) 04/28/25 22:00 05/05/25 21:59 Ondansetron HCl (zoFRAN 4MG INJ) 4 mg Q6H PRN IV NAUSEA/VOMITING 04/28/25 22:00 05/28/25 21:59 04/29/25 17:02 4 MG Piperacillin Sod/ Tazobactam Sod (Zosyn 3.375gm+NS 50ml) 3.375 gm Q8H IV 04/28/25 22:00 05/08/25 21:59 04/29/25 22:02 3.375 [facility] / RADIOLOGY: [address] [address] IMAGING REPORT Signed PATIENT: SONA GRACE MR#: [id number] : 2000 SEX: M AGE: 24 LOCATION: [facility] ORDER 1734 STATUS: REG ER REPORT#: [id number] SERVICE 173 REASON: Fever ORDERING PHYSICIAN: CANDY BYRNE PROCEDURE: CXR1VW - CHEST 1VW EXAM: CR Chest, 1 View. CLINICAL HISTORY: Fever COMPARISON: None provided. FINDINGS: LUNGS: There is no mass, infiltrate, or acute pulmonary abnormality. PLEURAL SPACES: No evidence of pleural effusion or pneumothorax. MEDIASTINUM: The cardiomediastinal silhouette is within normal limits. BONES: No aggressive appearing osseous lesion seen. IMPRESSION: No acute cardiopulmonary pathology is evident. /[place] DICTATED BY: WOODROW MEDINA Jr., MD DATE: 04/28/252109 ELECTRONICALLY SIGNED BY: WOODROW MEDINA Jr., MD DATE: 04/28/252109 [place] [id number] IMAGING REPORT Signed PATIENT: SONA GRACE MR#: [id number] : 2000 SEX: M AGE: 24 LOCATION: [facility] ORDER 28 STATUS: REG ER REPORT#: [id number] SERVICE 27 REASON: Headache ORDERING PHYSICIAN: CANDY BYRNE PROCEDURE: HEAD WO - CT HEAD/BRAIN W/O CONTRAST EXAM: CT Head Without IV contrast. CLINICAL HISTORY: Headache TECHNIQUE: Axial computed tomography images of the head/brain without intravenous contrast. CT scan done according to ALARA (as low as reasonably achievable). COMPARISON: None provided. FINDINGS: BRAIN: No evidence of acute hemorrhage. No mass lesion. No CT evidence for acute territorial infarct. No midline shift or extra-axial collections. VENTRICLES: No hydrocephalus. ORBITS: The orbits are unremarkable. SINUSES AND MASTOIDS: The paranasal sinuses and mastoid air cells are clear. BONES: No fracture. SOFT TISSUES: Unremarkable. IMPRESSION: No acute intracranial abnormality. /[place] DICTATED BY: RAYNE CHANEL MD DATE: 04/28/252107 ELECTRONICALLY SIGNED BY: RAYNE CHANEL MD DATE: 04/28/252107 ASSESSMENT: Headache and fever, cause unkown POA SIRS With acute organ dysfunction, lactic acidosis POA PLAN: Headache and fever, cause unkown POA * Patient recieveing Tylenol for fever * Patient recieving Toradol for headache * Urinalysis, Influenza, Covid and Strep were all negative. Chest x ray and head CT were unremarkable as well. * Results of urine culture, blood culture and febrile agglutinin test are still pending. * Consult infectious disease service SIRS With acute organ dysfunction POA * Patient came in with temp over 103, Pulse 137, RR at 18 and lactic acid at 2.8 * Urinalysis, Influenza, Covid and Strep were all negative. Chest x ray and head CT were unremarkable as well. * Results of urine culture, blood culture and febrile agglutinin test are still pending. I have seen and examined the patient, reviewed the above documentation, participated in medical decision making, made necessary modifications, and agree with the treatment plan as documented by my mid-level provider above. Garry Hodge MD, ABHINAV MD Apr 30, 2025 00:11
[2025-04-30 05:33] LABS: NUCLEATED RED BLOOD CELLS 0.0 % (0.0-0.19); PLATELET COUNT (AUTO) 158.0 K/uL (130-400); RED BLOOD CELL COUNT(AUTO) 4.65 MIL/uL (4.50-6.20); RED CELL DISTRIBUTION WIDTH 12.9 % (11.0-15.5); WHITE BLOOD COUNT (AUTO) 7.4 K/uL (4.8-10.8)
[2025-04-30 06:04] LABS: CREATININE 1.1 mg/dL (0.5-1.3); GLOMERULAR FILTR. RATE CALC 96.0 mL/min (>90); GLUCOSE,RANDOM 95.0 mg/dL (70-105); PHOSPHORUS 3.2 mg/dL (2.5-4.9); SODIUM SERUM 132.0 mmol/L (136-145); UREA NITROGEN, BLOOD 15.0 mg/dL (7-18)
--- NOTE | 2025-04-30 11:26 | NUR ---
RE: LUMBAR PUNCTURE BY IR PATIENT SCHEDULED FOR LUMBAR PUNCTURE FOR TODAY. THERE IS NO IN-HOUSE INTERVENTIONAL RADIOLOGIST UNTIL SUNDAY. PROCEDURE RESCHEDULED FOR SUNDAY. SONA, HIGHWAY DESIGN ENGINEER NOTIFIED OF PROCEDURE OUTCOME.
[2025-04-30] MEDS: 0.9%NACL 1000ML 1,914 ML IV ONE (14:07)
[2025-04-30] MEDS: Solu-medROL 40MG VIAL IVP SCH (14:08)
[2025-04-30] MEDS ORDERED: IOHEXOL-350 75 ML VIAL IV ONE (14:40)
[2025-04-30 17:23] LABS: INR 1.19 (0.85-1.15)
--- NOTE | 2025-04-30 18:07 | HMCIMG ---
EXAM: CT Chest with and without Intravenous Contrast. CT Abdomen and Pelvis with and without Intravenous Contrast CLINICAL HISTORY: fever TECHNIQUE: Axial computed tomography images of the chest, abdomen and pelvis with and without intravenous contrast. CONTRAST: None. COMPARISON: None provided. FINDINGS: CHEST: There are small bilateral pleural effusions and bibasilar atelectasis there is a 1.1 cm pleural-based superior segment right lower lung pulmonary nodule best seen on series 4 image #[id number] HEART: No cardiomegaly. No significant pericardial effusion. LYMPH NODES: No lymphadenopathy is evident. ABDOMEN AND PELVIS: LIVER: Unremarkable. No focal lesions. GALLBLADDER AND BILE DUCTS: The gallbladder appears within normal limits. No radioopaque gallstones are seen. No biliary ductal dilatation is evident. PANCREAS: Unremarkable. SPLEEN: Unremarkable. Small medial splenule ADRENAL GLANDS: Unremarkable. KIDNEYS, URETERS, AND BLADDER: Unremarkable. No hydronephrosis or nephrolithiasis. No ureteral or bladder calculi. STOMACH AND BOWEL: Unremarkable appearance of the stomach and bowel. No evidence of bowel obstruction. No evidence suggesting enteritis or colitis. APPENDIX: No evidence of acute appendicitis on CT examination. PERITONEUM: No free fluid. No free air. REPRODUCTIVE: Unremarkable. LYMPH NODES: No lymphadenopathy is evident. VASCULATURE: No evidence of abdominal aortic aneurysm. BONES: No acute osseous abnormality. Small amount of gas present within the subcutaneous fat of the left anterior pelvic wall may be iatrogenic. IMPRESSION: 1. Small bilateral pleural effusions with bibasilar atelectasis. Small area of consolidation/pneumonia left lung base not excluded. 2. 1.1 cm pleural-based nodule in the superior segment of the right lower lobe 3. Small amount of subcutaneous gas in the left anterior pelvic wall, may be iatrogenic /[place]
[2025-04-30 18:34] LABS: CREATININE 0.9 mg/dL (0.5-1.3); GLOMERULAR FILTR. RATE CALC 122.0 mL/min (>90); GLUCOSE,RANDOM 122.0 mg/dL (70-105); PHOSPHORUS 2.9 mg/dL (2.5-4.9); SODIUM SERUM 132.0 mmol/L (136-145); UREA NITROGEN, BLOOD 14.0 mg/dL (7-18)
--- NOTE | 2025-04-30 18:56 | PN ---
[facility] PROGRESS NOTE Date of Service: Apr 30, 2025 Time of Service: 18:16 SUBJECTIVE: 04/29/25: Patient was examined today in the ED room with his girlfriend present. Patient's headache has improved after being placed on Toradol. Patient remains febrile with a temperature of 100.4 , all other vital signs were un remarkable. Labs showed a WBC of 5.5, procalcitonin and CRP were elevated at 0.9 and 81 respectively. Urinalysis, Influenza, Covid and Strep were all negative. Chest x ray and head CT were unremarkable as well. Results of urine culture, blood culture and febrile agglutinin test are still pending. Patient is currently on Zosyn 3.375mg IV. Infectious disease was consulted for further evaluation and management. 04/30/25: Patient was examined today with his mother present. Patient still has high fever in the 102.7 range. He also has pulse rate of 112, respiratory rate of 22 and blood pressure of 139/77 with pulse oximetry of 96 on room air. Critical care consult has been placed. Patient's blood culture came back negative after 24 hours. A lumbar puncture order has been placed to to rule out meningitis. Infectious diseases placed an order for chest CT, waiting on results. The patient continues to be on Zosyn and doxycycline. Patient's lab work today still shows WBC at 7.4 Platelet count of 158 with non-significant BMP labs except C-reactive protein high at on 118.50. Patient also nauseous with food and water so has not been drinking enough water. Placed on normal saline at 125 ml/hour. REVIEW OF SYSTEMS CONSTITUTIONAL: fever, chills, denies fatigue. HEAD/FACE: Headache No signs of trauma. EENT: Denies eye pain, blurred vision, double vision, or light sensitivity. RESPIRATORY: Cough, Denies shortness of breath, wheezing CARDIOVASCULAR: Denies chest pain, palpitation, syncope GASTROINTESTINAL/ABDOMINAL: Denies abdominal pain, constipation, diarrhea or vomiting, nausea GENITOURINARY: Denies dysuria or hematuria. MUSCULOSKELETAL: Denies joint pain, tenderness, or trauma. INTEGUMENTARY: Denies rash or itchiness NEUROLOGICAL/PSYCH: Denies anxiety, depression, heat or cold intolerance. PHYSICAL EXAM GENERAL APPEARANCE: The patient is awake, drowsy but oriented, in no acute cardiopulmonary distress. NEUROLOGICAL: Motor is 5/5 in bilateral upper and lower extremities proximal to distal. No sensory deficits. HEENT: Face is symmetric. Pupils are equal and reactive. Extraocular movements are intact. NECK: Supple. No JVD. No thyromegaly. No submental, submandibular, pre- /postauricular, occipital or supraclavicular lymphadenopathy. CHEST: Normal chest expansion. No Telemetry. LUNGS: Absence of any rales, rhonchi or any wheezing. CARDIOVASCULAR: Regular. S1 and S2 normal. No appreciable rubs, murmurs or gallops. ABDOMEN: Soft, nontender, and nondistended. There is no rebound, voluntary guarding, or rigidity. : Deferred. No Garcias. EXTREMITIES: Non-edematous and not cyanotic. No clubbing. Good capillary refill. warm to touch SKIN: No skin breakdown. Vital Signs (last 8hr) Date Time Temp Pulse Resp B/P (MAP) Pulse Ox O2 Delivery O2 Flow Rate FiO2 04/30/25 16:00 102.0 112 22 179/77 96 Room Air 04/30/25 12:00 99.1 109 20 150/79 94 Room Air LABS: Laboratory: Test 04/30/25 17:45 04/30/25 16:45 04/30/25 05:19 04/29/25 14:28 Range/Units Ionized Calcium 1.13 L 1.15-1.33 MMOL/L Ammonia < 10 L 11-32 umol/L Prothrombin Time 12.4 H 9.6-11.6 SEC Prothromb Time International Ratio 1.19 H 0.85-1.15 Activated Partial Thromboplast Time 34.5 26.3-35.5 SEC White Blood Count 7.4 # 4.8-10.8 K/uL Red Blood Count 4.65 4.50-6.20 MIL/uL Hemoglobin 13.7 L 14.0-18.0 g/dL Hematocrit 40.4 L 42-54 % Mean Corpuscular Volume 86.9 79-99 fL Mean Corpuscular Hemoglobin 29.5 27.0-33.0 pg Mean Corpuscular Hemoglobin Concent 33.9 32.0-36.0 g/dL Red Cell Distribution Width 12.9 11.0-15.5 % Platelet Count 158 130-400 K/uL Mean Platelet Volume 10.7 H 7.5-10.5 fL Nucleated Red Blood Cells 0.0 0.0-0.19 % C-Reactive Protein, Quantitative 118.50 H 0.5-3.0 mg/L Lactic Acid Level 1.2 0.8-2.5 mmol/L Test 04/29/25 09:27 04/29/25 07:08 04/28/25 18:29 Range/Units Procalcitonin 0.99 H 0.05-0.5 ng/mL Immature Granulocyte % (Auto) 0.5 0-1 % Neutrophils (%) (Auto) 69.6 40.0-77.0 % Lymphocytes (%) (Auto) 23.0 21.0-51.0 % Monocytes (%) (Auto) 6.5 3.0-13.0 % Eosinophils (%) (Auto) 0.0 0.0-8.0 % Basophils (%) (Auto) 0.4 0.0-5.0 % Neutrophils # (Auto) 3.9 1.8-7.7 K/uL Lymphocytes # (Auto) 1.3 1.0-4.8 K/uL Monocytes # (Auto) 0.4 0.1-1.0 K/uL Eosinophils # (Auto) 0.00 0.00-0.70 K/uL Basophils # (Auto) 0.02 0.00-0.20 K/uL Absolute Immature Granulocyte (auto 0.03 0-1 K/uL [place] Total Antibody Agglutin NEGATIVE NEGATIVE Paratyphoid A Antibody NEGATIVE NEGATIVE Paratyphoid B Antibody NEGATIVE NEGATIVE Proteus OX-19 Antibody NEGATIVE NEGATIVE Typhoid H Antibody NEGATIVE NEGATIVE Typhoid O Antibody NEGATIVE NEGATIVE Urine Color YELLOW YELLOW Urine Appearance CLEAR CLEAR Urine pH 5.5 5.0-8.0 Urine Specific [place] 1.028 1.001-1.031 Urine Protein 30 H NEGATIVE mg/dL Urine Glucose (UA) NEGATIVE NEGATIVE mg/dL Urine Ketones NEGATIVE NEGATIVE mg/dL Urine Occult Blood SMALL H NEGATIVE Urine Nitrate NEGATIVE NEGATIVE Urine Bilirubin NEGATIVE NEGATIVE mg/dL Urine Urobilinogen 3 H 0.2-1.0 mg/dL Urine Leukocyte Esterase NEGATIVE NEGATIVE Roberto/uL Urine RBC 2-5 H 0-1 /HPF Urine WBC 2-5 H 0-1 /HPF Urine Bacteria RARE None Seen /HPF Influenza Type A Antigen Negative For Type A NEGATIVE Influenza Type B Antigen Negative For Type B NEGATIVE SARS-CoV-2 Antigen (Rapid) PRESUMPTIVE NEGATIVE NEGATIVE Group A Streptococcus Rapid negative NEGATIVE Current Medications Medications (Trade) Dose Ordered Sig/Nikole Route PRN Reason Start Time Stop Time Status Last Admin Dose Admin Acetaminophen (TYLenol 325MG TAB) 650 mg Q6H PRN PO TEMPERATURE GREATER THAN 101.5 04/28/25 22:00 05/28/25 21:59 04/30/25 10:02 650 MG Doxycycline Hyclate (Doxycycline Hyclate) 100 mg BID PO 04/29/25 21:00 05/09/25 20:59 04/30/25 10:02 100 MG Enoxaparin Sodium (Lovenox) 40 mg DAILY SQ 04/29/25 09:00 05/29/25 08:59 04/30/25 10:09 40 MG Famotidine (Pepcid 20mg Tab) 20 mg DAILY PO 04/29/25 09:00 05/29/25 08:59 04/30/25 10:02 20 MG Hydralazine HCl (APRESOLine 20MG INJ) 10 mg Q6H PRN IV For:SBP above 160;DBP above 90 04/28/25 22:00 05/28/25 21:59 Ketorolac Tromethamine (toRADol) 15 mg Q6H PRN IV MODERATE PAIN (4-6) 04/29/25 12:00 05/04/25 11:59 04/29/25 20:47 15 MG Methylprednisolone Sodium Succinate (Solu-medROL 40MG) 40 mg Q24H IVP 04/30/25 14:00 05/30/25 13:59 04/30/25 14:08 40 MG Morphine Sulfate (morPHINE 4MG SYG) 4 mg Q4H PRN IVP SEVERE PAIN (7-10) 04/28/25 22:00 05/05/25 21:59 Ondansetron HCl (zoFRAN 4MG INJ) 4 mg Q6H PRN IV NAUSEA/VOMITING 04/28/25 22:00 05/28/25 21:59 04/30/25 10:12 4 MG Piperacillin Sod/ Tazobactam Sod (Zosyn 3.375gm+NS 50ml) 3.375 gm Q8H IV 04/28/25 22:00 05/08/25 21:59 04/30/25 14:06 3.375 GM DIAGNOSTICS / RADIOLOGY: [ ] ASSESSMENT: Headache and fever, cause unkown POA SIRS With acute organ dysfunction, lactic acidosis POA Hyponatremia Dehydration PLAN: Headache and fever, cause unkown POA * Patient recieveing Tylenol for fever * Patient recieving Toradol for headache * Urinalysis, Influenza, Covid and Strep were all negative. Chest x ray and head CT were unremarkable as well. * Results of blood culture are negative after 24 hours and febrile agglutinin test results are still pending. * Consult infectious disease consulted * On IV Zosyn and doxycycline p.o. SIRS With acute organ dysfunction POA * Patient came in with temp over 103, Pulse 137, RR at 18 and lactic acid at 2.8 * Urinalysis, Influenza, Covid and Strep were all negative. Chest x ray and head CT were unremarkable as well. * Results of blood culture are negative after 24 hours and febrile agglutinin test results are still pending. Hyponatremia POA * Patient placed on normal saline at 125 mL/hour Dehydration * Patient feeling nauseous with food and water so has not been drinking enough water * Patient placed on normal saline at 125 mL/hour I have seen and examined the patient, reviewed the above documentation, participated in medical decision making, made necessary modifications, and agree with the treatment plan as documented by my mid-level provider above. Garry Hodge MD, ABHINAV MD Apr 30, 2025 18:56
[2025-04-30 20:23] LABS: APPEARANCE,CSF CLEAR (CLEAR); COLOR,CSF COLORLESS (COLORLESS); CSF 2ND TUBE NUMBER TUBE NO.4; CSF TOTAL VOLUME 18.0 mL; CSF TUBE NUMBER TUBE NO.3; GLUCOSE, CSF 59 mg/dL (40-70); TOTAL PROTEIN, CSF 37 mg/dL (15-45)
[2025-04-30 20:24] LABS: APPEARANCE2,CSF CLEAR (CLEAR); COLOR2,CSF COLORLESS (COLORLESS)
[2025-04-30 20:28] LABS: RED BLOOD CELL1,CSF 14 CMM (0-0); WHITE BLOOD CELL1,CSF 2 CMM (0-5)
[2025-04-30 20:37] LABS: RED BLOOD CELL2,CSF 7.0 CMM (0-0); WHITE BLOOD CELL2,CSF 0.0 CMM (0-5)
[2025-04-30 20:44] LABS: HIV 1&2 ANTIBODY Non-Reactive (Negative)
--- NOTE | 2025-04-30 21:49 | CONS ---
[facility] CONSULTATION NOTE Date Patient Seen: Apr 30, 2025 Time of Visit: 2044 Supervising Physician: Dr. Jaylen Balderas ] Reason for Consultation: [Critical care consult] Primary Care Physician: [Dr. Faye Palacio ] Outpatient Specialists: [ ] Inpatient Consults: [ICU-B[facility], ID-Dr. Miller ] PROBLEM LIST: Fever of unknown origin-POA Rule-out meningitis-POA- initial LP results was unremarkable, pending the rest of the work-up Mild hyponatremia-POA Complaints of headaches, sore throat, and light sensitivity-POA Morbid obesity PLAN: -Continue medical management with antibiotics, currently on Doxy and Zosyn -Pending LP results and blood CX report -Manage headache and fever PRN -Continue IV NS @ 125 mls/hr -Obtain HIV, strep A, thiamine, folic acid levels and varicella screen HPI: [Patient is a morbidly obese 24-year-old male who denies any significant medical history who came to the hospital complaining of persistent fever x 7 days with accompanying symptoms of headaches, dry heaving and light sensitivity. He claims that he had a recent visit in [facility]. When he got home, he took some nap and then he woke up with a headache followed by the symptoms stated above. He denies any recent out-of-town travel or getting sick. His admission work-up included sepsis and to rule-out meningitis. He was given IV fluids, Doxycycline and Zosyn. I.D. specialist was consulted and patient just completed LP prior to my visit. Physical assessment was unrevealing, he was laying flat on the bed after the LP procedure. He denies any paralysis, numbness, or other focal neurologic deficits. Goals of care were discussed with the patient, verbalizing understanding and agreement. PAST MEDICAL HX: see above PAST SURGICAL HX: noncontributory SOCIAL HISTORY: No tobacco, ETOH, or illicit drug use Coded Allergies: No Known Drug Allergies (Unverified Allergy, Unknown, 12/10/21) REVIEW OF SYSTEMS: 12 point ROS reviewed with patient. Pertinent positives mentioned above. Otherwise negative. PHYSICAL EXAM: GENERAL: alert, weak, awake oriented x 3 HEENT: EOMI, Sclera non icteric, moist mucosa NECK: Supple, no JVD, trachea midline LUNGS: Clear breath sounds bilaterally. No wheezes HEART: Regular rate and rhythm. Normal S1 and S2, without murmurs ABD: Abdomen soft, nontender. Bowel sounds present EXT: No clubbing cyanosis or edema NEURO: Alert and oriented to person, follows commands Vital Signs (last 8hr) Date Time Temp Pulse Resp B/P (MAP) Pulse Ox O2 Delivery O2 Flow Rate FiO2 04/30/25 20:00 98.1 99 20 117/65 97 Room Air 04/30/25 18:47 98 20 116/62 96 Room Air 04/30/25 18:45 99 20 120/65 96 Room Air 04/30/25 18:41 104 18 119/67 96 Room Air 04/30/25 18:39 95 20 113/65 96 Room Air 04/30/25 18:35 109 20 118/67 96 Room Air 04/30/25 18:31 114 20 122/71 96 Room Air 04/30/25 18:29 123 20 115/71 96 Room Air 04/30/25 18:27 123 20 122/68 96 Room Air 04/30/25 18:25 117 20 125/69 96 Room Air 04/30/25 18:23 123 20 125/69 96 Room Air 04/30/25 18:21 119 20 128/77 97 Room Air 04/30/25 16:00 102.0 112 22 179/77 96 Room Air LABS: Hematology Labs: Test 04/30/25 05:19 04/29/25 07:08 Range/Units White Blood Count 7.4 # 4.8-10.8 K/uL Red Blood Count 4.65 4.50-6.20 MIL/uL Hemoglobin 13.7 L 14.0-18.0 g/dL Hematocrit 40.4 L 42-54 % Mean Corpuscular Volume 86.9 79-99 fL Mean Corpuscular Hemoglobin 29.5 27.0-33.0 pg Mean Corpuscular Hemoglobin Concent 33.9 32.0-36.0 g/dL Red Cell Distribution Width 12.9 11.0-15.5 % Platelet Count 158 130-400 K/uL Mean Platelet Volume 10.7 H 7.5-10.5 fL Nucleated Red Blood Cells 0.0 0.0-0.19 % Immature Granulocyte % (Auto) 0.5 0-1 % Neutrophils (%) (Auto) 69.6 40.0-77.0 % Lymphocytes (%) (Auto) 23.0 21.0-51.0 % Monocytes (%) (Auto) 6.5 3.0-13.0 % Eosinophils (%) (Auto) 0.0 0.0-8.0 % Basophils (%) (Auto) 0.4 0.0-5.0 % Neutrophils # (Auto) 3.9 1.8-7.7 K/uL Lymphocytes # (Auto) 1.3 1.0-4.8 K/uL Monocytes # (Auto) 0.4 0.1-1.0 K/uL Eosinophils # (Auto) 0.00 0.00-0.70 K/uL Basophils # (Auto) 0.02 0.00-0.20 K/uL Absolute Immature Granulocyte (auto 0.03 0-1 K/uL Chemistry Labs: Test 04/30/25 17:45 04/30/25 05:19 04/29/25 14:28 04/29/25 09:27 Range/Units Sodium Level 132 L 136-145 mmol/L Potassium Level 4.3 3.5-5.1 mmol/L Chloride Level 97 L 101-111 mmol/L Carbon Dioxide Level 24 21-32 mmol/L Blood Urea Nitrogen 14 7-18 mg/dL Creatinine 0.9 0.5-1.3 mg/dL Glomerular Filtration Rate Calc 122 >90 mL/min Random Glucose 122 H 70-105 mg/dL Total Calcium 8.9 8.5-10.1 mg/dL Ionized Calcium 1.13 L 1.15-1.33 MMOL/L Phosphorus Level 2.9 2.5-4.9 mg/dL Magnesium Level 1.80 1.80-2.40 mg/dL Ammonia < 10 L 11-32 umol/L Vitamin B12 Level 631 193-986 pg/mL Folic Acid (LAB) > 20.00 H 2-20 ng/mL C-Reactive Protein, Quantitative 118.50 H 0.5-3.0 mg/L Lactic Acid Level 1.2 0.8-2.5 mmol/L Procalcitonin 0.99 H 0.05-0.5 ng/mL Coagulation Labs: Test 04/30/25 16:45 Range/Units Prothrombin Time 12.4 H 9.6-11.6 SEC Prothromb Time International Ratio 1.19 H 0.85-1.15 Activated Partial Thromboplast Time 34.5 26.3-35.5 SEC DIAGNOSTICS / RADIOLOGY RESULTS: [ ] PLAN NEURO: Minimize central acting medications as possible. Maintain fall precautions, adequate lighting during the day PULMONARY: Supplemental 02 as needed. Maintain aspiration precautions at all times CARDIOVASCULAR: Follow hemodynamics. Vital signs per facility protocol GI & NUTRITION: Continue with nutritional support. Continue stool softeners and laxatives as needed. KIDNEYS & ELECTROLYTES: Strict monitoring of intake, output and overall fluid balance. Avoid nephrotoxic medications to the extent possible. Medications to be dosed according to renal function. Monitor electrolytes and replace as needed ENDOCRINE: Maintain blood glucose between 100-180 at all times. Hypoglycemia protocol in place INFECTIOUS DISEASE: Trend temperature, WBC and procalcitonin level Follow cultures, deescalate antibiotics as soon as possible. Panculture if new onset fever ONCOLOGY/HEMATOLOGY/COAGULATION: Monitor for s/s of bleeding Monitor hemoglobin, coagulation studies as needed SKIN: Pressure ulcer prevention per facility protocol Specialty mattress ORTHO/REHAB: Continue PT/OT Prophylaxis: Continue GI and DVT prophylaxis Code Status: Full Resuscitation Disposition: STEFANY GR AGCR Apr 30, 2025 21:49
[2025-04-30] MEDS ORDERED: GLUCAGON 1MG KIT 1 MG ML IM PRN (22:00)
[2025-04-30] MEDS ORDERED: DEXTROSE 50%-WATER 50 ML DISP.SYRIN IV PRN (22:00)
[2025-04-30 22:15] LABS: AMPHET/METH SCREEN,URINE NEGATIVE (NEGATIVE); BARBITURATE SCREEN, URINE NEGATIVE (NEGATIVE); CANNABINOID SCREEN,URINE NEGATIVE (NEGATIVE); COCAINE SCREEN,URINE NEGATIVE (NEGATIVE)
[2025-05-01] VITALS (7 sets, daily range): BP systolic 106–135; BP diastolic 61–84; PULSE 81–110; RESP 17–21; TEMP 97.7–98.3; O2SAT 95
[2025-05-01 10:07] LABS: IMMATURE GRANULOCYTE ABSOLUTE 0.05 K/uL (0-1); NUCLEATED RED BLOOD CELLS 0.0 % (0.0-0.19); PLATELET COUNT (AUTO) 185 K/uL (130-400); RED BLOOD CELL COUNT(AUTO) 4.69 MIL/uL (4.50-6.20); RED CELL DISTRIBUTION WIDTH 13.0 % (11.0-15.5); WHITE BLOOD COUNT (AUTO) 7.5 K/uL (4.8-10.8)
[2025-05-01 10:18] LABS: ASPARTATE AMINOTRANSFERASE 56.0 U/L (10-37); CREATININE 0.8 mg/dL (0.5-1.3); GLOMERULAR FILTR. RATE CALC 127.0 mL/min (>90); GLUCOSE,RANDOM 110.0 mg/dL (70-105); SODIUM SERUM 135.0 mmol/L (136-145); TOTAL PROTEIN, SERUM 7.5 g/dL (6.0-8.3); UREA NITROGEN, BLOOD 12.0 mg/dL (7-18)
[2025-05-01] MEDS: 0.9%NACL 1000ML 1,914 ML IV ONE (11:24)
--- NOTE | 2025-05-01 11:29 | PN ---
[facility] PROGRESS NOTE Date of Service: May 01, 2025 Time of Service: 11:26 SUBJECTIVE: 04/29/25: Patient was examined today in the ED room with his girlfriend present. Patient's headache has improved after being placed on Toradol. Patient rremains febrile with a temperature of 100.4 , all other vital signs were un remarkable. Labs showed a WBC of 5.5, procalcitonin and CRP were elevated at 0.9 and 81 respectively. Urinalysis, Influenza, Covid and Strep were all negative. Chest x ray and head CT were unremarkable as well. Results of urine culture, blood culture and febrile agglutinin test are still pending. Patient is currently on Zosyn 3.375mg IV. Infectious disease was consulted for further evaluation and management. 04/30/25: Patient was examined today with his mother present. Patient still has high fever in the 102.7 range. He also has pulse rate of 112, respiratory rate of 22 and blood pressure of 139/77 with pulse oximetry of 96 on room air. Critical care consult has been placed. Patient's blood culture came back negative after 24 hours. A lumbar puncture order has been placed to to rule out meningitis. Infectious diseases placed an order for chest CT, waiting on results. The patient continues to be on Zosyn and doxycycline. Patient's lab work today still shows WBC at 7.4 Platelet count of 158 with non-significant BMP labs except C-reactive protein high at on 118.50. Patient also nauseous with food and water so has not been drinking enough water. Placed on normal saline at 125 ml/hour. 05/01/25: Patient was examined today with his girlfriend present. Patient had a lumbar puncture done yesterday night and has been doing well since the procedure. He does not have anymore headaches and his fever has gone down as well, his temperature today was 98.2 Pulse rate at 88 blood pressure 127/75 and pulse ox at 98 on room air. His LP lab results came back negative for anything significant, still waiting on further results and cultures. His remaining labs were also normal with WBC at 7.5, creatinine at 0.8, his prolactin has gone down from 0.99 to 0.82. If the patient continues the current course we might discharge him tomorrow. Patient has been having vomiting episodes with administration of IV Solu-Medrol so discontinuing the IV Solu-Medrol. REVIEW OF SYSTEMS CONSTITUTIONAL: Denies fever, chills, fatigue NEUROLOGICAL: , Denies Headache, amaurosis fugax, motor weakness, sensory deficit, vertigo/spinning sensation, gait abnormalities, or tremors. ENT: No hearing loss, otalgia, otorrhea, rhinitis, rhinorrhea, hoarseness, or sore throat. CARDIOVASCULAR: Denies any exertional angina, dyspnea on exertion, orthopnea, paroxysmal nocturnal dyspnea, palpitations, life-threatening arrhythmias, claudication. PULMONARY: Denies Cough, any shortness of breath, phlegm/sputum, hemoptysis, pleuritic chest pain. GASTROINTESTINAL: Denies abdominal pain, constipation, diarrhea, nausea or vomiting GENITOURINARY: Denies frequency, urgency, nocturia, hematuria or incontinence ENDOCRINOLOGIC: Denies polyuria, polydipsia, polyphagia or heat/cold intolerances. DERMATOLOGIC: Denies rashes or pruritus. PSYCHIATRIC: Denies any suicidal or homicidal ideation. Denies hallucinations. PHYSICAL EXAM GENERAL APPEARANCE: The patient is awake, alert, and oriented, in no acute cardiopulmonary distress. NEUROLOGICAL: Motor is 5/5 in bilateral upper and lower extremities proximal to distal. No sensory deficits. HEENT: Face is symmetric. Pupils are equal and reactive. Extraocular movements are intact. NECK: Supple. No JVD. No thyromegaly. No submental, submandibular, pre- /postauricular, occipital or supraclavicular lymphadenopathy. CHEST: Normal chest expansion. No Telemetry. LUNGS: Absence of any rales, rhonchi or any wheezing. CARDIOVASCULAR: Regular. S1 and S2 normal. No appreciable rubs, murmurs or gallops. ABDOMEN: Soft, nontender, and nondistended. There is no rebound, voluntary guarding, or rigidity. : Deferred. No Garcias. EXTREMITIES: Non-edematous and not cyanotic. No clubbing. Good capillary refill. SKIN: No skin breakdown. Vital Signs (last 8hr) Date Time Temp Pulse Resp B/P (MAP) Pulse Ox O2 Delivery O2 Flow Rate FiO2 05/01/25 08:00 98.2 88 17 127/75 95 Room Air 05/01/25 04:00 98.2 83 20 120/76 98 Room Air LABS: Laboratory: Test 05/01/25 05:40 05/01/25 04:45 04/30/25 22:44 04/30/25 20:55 Range/Units Whole Blood Glucose 121 H 70-110 MG/DL White Blood Count 7.5 4.8-10.8 K/uL Red Blood Count 4.69 4.50-6.20 MIL/uL Hemoglobin 13.6 L 14.0-18.0 g/dL Hematocrit 40.8 L 42-54 % Mean Corpuscular Volume 87.0 79-99 fL Mean Corpuscular Hemoglobin 29.0 27.0-33.0 pg Mean Corpuscular Hemoglobin Concent 33.3 32.0-36.0 g/dL Red Cell Distribution Width 13.0 11.0-15.5 % Platelet Count 185 130-400 K/uL Mean Platelet Volume 11.6 H 7.5-10.5 fL Immature Granulocyte % (Auto) 0.7 0-1 % Neutrophils (%) (Auto) 60.1 40.0-77.0 % Lymphocytes (%) (Auto) 30.1 21.0-51.0 % Monocytes (%) (Auto) 8.8 3.0-13.0 % Eosinophils (%) (Auto) 0.0 0.0-8.0 % Basophils (%) (Auto) 0.3 0.0-5.0 % Neutrophils # (Auto) 4.5 1.8-7.7 K/uL Lymphocytes # (Auto) 2.3 1.0-4.8 K/uL Monocytes # (Auto) 0.7 0.1-1.0 K/uL Eosinophils # (Auto) 0.00 0.00-0.70 K/uL Basophils # (Auto) 0.02 0.00-0.20 K/uL Absolute Immature Granulocyte (auto 0.05 0-1 K/uL Nucleated Red Blood Cells 0.0 0.0-0.19 % Sodium Level 135 L 136-145 mmol/L Potassium Level 3.9 3.5-5.1 mmol/L Chloride Level 102 101-111 mmol/L Carbon Dioxide Level 23 21-32 mmol/L Blood Urea Nitrogen 12 7-18 mg/dL Creatinine 0.8 0.5-1.3 mg/dL Glomerular Filtration Rate Calc 127 >90 mL/min Random Glucose 110 H 70-105 mg/dL Hemoglobin A1c 5.6 4.0-6.0 % Estimated Average Glucose (eAG) 114 70-126 mg/dL Total Calcium 8.8 8.5-10.1 mg/dL Total Bilirubin 0.5 0.2-1.0 mg/dL Aspartate Amino Transf (AST/SGOT) 56 H 10-37 U/L Alanine Aminotransferase (ALT/SGPT) 104 H 12-78 U/L Alkaline Phosphatase 117 50-136 U/L Total Protein 7.5 6.0-8.3 g/dL Albumin 2.9 L 3.5-5.0 g/dL Procalcitonin 0.82 H 0.05-0.5 ng/mL Group A Streptococcus Rapid negative NEGATIVE Urine Opiates Screen NEGATIVE NEGATIVE Urine Barbiturates Screen NEGATIVE NEGATIVE Urine Phencyclidine Screen NEGATIVE NEGATIVE Urine Amphetamines Screen NEGATIVE NEGATIVE Urine Benzodiazepines Screen NEGATIVE NEGATIVE Urine Cocaine Screen NEGATIVE NEGATIVE Urine Marijuana (THC) Screen NEGATIVE NEGATIVE Test 04/30/25 18:30 04/30/25 17:45 04/30/25 16:45 04/30/25 05:19 Range/Units CSF Tube Number TUBE NO.3 CSF Volume 18.0 mL CSF Appearance CLEAR CLEAR CSF Color COLORLESS COLORLESS CSF WBC 2 0-5 CMM CSF RBC 14 H 0-0 CMM CSF Tube Number (Tube b) TUBE NO.4 CSF Appearance (Tube b) CLEAR CLEAR CSF Color (Tube b) COLORLESS COLORLESS CSF WBC (Tube b) 0.0 0-5 CMM CSF RBC (Tube b) 7.0 H 0-0 CMM CSF Neutrophils % (tube B) % CSF Lymphocytes % (tube b) % CSF Other Cells % (Tube b) CSF Glucose 59 40-70 mg/dL CSF Total Protein 37 15-45 mg/dL Ionized Calcium 1.13 L 1.15-1.33 MMOL/L Phosphorus Level 2.9 2.5-4.9 mg/dL Magnesium Level 1.80 1.80-2.40 mg/dL Ammonia < 10 L 11-32 umol/L Vitamin B12 Level 631 193-986 pg/mL Folic Acid (LAB) > 20.00 H 2-20 ng/mL Prothrombin Time 12.4 H 9.6-11.6 SEC Prothromb Time International Ratio 1.19 H 0.85-1.15 Activated Partial Thromboplast Time 34.5 26.3-35.5 SEC HIV (1&2) Antibody Non-Reactive Negative HIV P24 Antigen, Qualitative Non-Reactive Negative C-Reactive Protein, Quantitative 118.50 H 0.5-3.0 mg/L Test 04/29/25 14:28 Range/Units Lactic Acid Level 1.2 0.8-2.5 mmol/L Current Medications Medications (Trade) Dose Ordered Sig/Nikole Route PRN Reason Start Time Stop Time Status Last Admin Dose Admin Acetaminophen (TYLenol 325MG TAB) 650 mg Q6H PRN PO TEMPERATURE GREATER THAN 101.5 04/28/25 22:00 05/28/25 21:59 04/30/25 10:02 650 MG Dextrose (D50w) 50 ml AD PRN IV HYPOGLYCEMIA PROTOCOL 04/30/25 22:00 05/30/25 21:59 Doxycycline Hyclate (Doxycycline Hyclate) 100 mg BID PO 04/29/25 21:00 05/09/25 20:59 05/01/25 11:23 100 MG Enoxaparin Sodium (Lovenox) 40 mg DAILY SQ 04/29/25 09:00 05/29/25 08:59 05/01/25 11:23 40 MG Famotidine (Pepcid 20mg Tab) 20 mg DAILY PO 04/29/25 09:00 05/29/25 08:59 05/01/25 11:23 20 MG Glucagon (Glucagon 1mg Kit) 1 mg AD PRN IM HYPOGLYCEMIA PROTOCOL 04/30/25 22:00 05/30/25 21:59 Hydralazine HCl (APRESOLine 20MG INJ) 10 mg Q6H PRN IV For:SBP above 160;DBP above 90 04/28/25 22:00 05/28/25 21:59 Insulin Human Regular (humuLIN R 100 UNIT/ML 3ML) INSULIN SLIDING SCAL... ACHS SQ 04/30/25 22:00 05/30/25 21:59 Ketorolac Tromethamine (toRADol) 15 mg Q6H PRN IV MODERATE PAIN (4-6) 04/29/25 12:00 05/04/25 11:59 04/29/25 20:47 15 MG Methylprednisolone Sodium Succinate (Solu-medROL 40MG) 40 mg Q24H IVP 04/30/25 14:00 05/30/25 13:59 04/30/25 14:08 40 MG Morphine Sulfate (morPHINE 4MG SYG) 4 mg Q4H PRN IVP SEVERE PAIN (7-10) 04/28/25 22:00 05/05/25 21:59 Ondansetron HCl (zoFRAN 4MG INJ) 4 mg Q6H PRN IV NAUSEA/VOMITING 04/28/25 22:00 05/28/25 21:59 04/30/25 22:50 4 MG Piperacillin Sod/ Tazobactam Sod (Zosyn 3.375gm+NS 50ml) 3.375 gm Q8H IV 04/28/25 22:00 05/08/25 21:59 05/01/25 06:33 3.375 GM DIAGNOSTICS / RADIOLOGY: [address] [address] IMAGING REPORT Signed PATIENT: SONA GRACE MR#: [id number] : 2000 SEX: M AGE: 24 LOCATION: [facility] ORDER 1000 STATUS: ADM IN REPORT#: [id number] SERVICE [id number] REASON: fever ORDERING PHYSICIAN: JANE WYNN MD PROCEDURE: CAP WWO - CT CHEST/ABD/PELV W/WO CONTRAS EXAM: CT Chest with and without Intravenous Contrast. CT Abdomen and Pelvis with and without Intravenous Contrast CLINICAL HISTORY: fever TECHNIQUE: Axial computed tomography images of the chest, abdomen and pelvis with and without intravenous contrast. CONTRAST: None. COMPARISON: None provided. FINDINGS: CHEST: There are small bilateral pleural effusions and bibasilar atelectasis there is a 1.1 cm pleural-based superior segment right lower lung pulmonary nodule best seen on series 4 image #[id number] HEART: No cardiomegaly. No significant pericardial effusion. LYMPH NODES: No lymphadenopathy is evident. ABDOMEN AND PELVIS: LIVER: Unremarkable. No focal lesions. GALLBLADDER AND BILE DUCTS: The gallbladder appears within normal limits. No radioopaque gallstones are seen. No biliary ductal dilatation is evident. PANCREAS: Unremarkable. SPLEEN: Unremarkable. Small medial splenule ADRENAL GLANDS: Unremarkable. KIDNEYS, URETERS, AND BLADDER: Unremarkable. No hydronephrosis or nephrolithiasis. No ureteral or bladder calculi. STOMACH AND BOWEL: Unremarkable appearance of the stomach and bowel. No evidence of bowel obstruction. No evidence suggesting enteritis or colitis. APPENDIX: No evidence of acute appendicitis on CT examination. PERITONEUM: No free fluid. No free air. REPRODUCTIVE: Unremarkable. LYMPH NODES: No lymphadenopathy is evident. VASCULATURE: No evidence of abdominal aortic aneurysm. BONES: No acute osseous abnormality. Small amount of gas present within the subcutaneous fat of the left anterior pelvic wall may be iatrogenic. IMPRESSION: 1. Small bilateral pleural effusions with bibasilar atelectasis. Small area of consolidation/pneumonia left lung base not excluded. 2. 1.1 cm pleural-based nodule in the superior segment of the right lower lobe 3. Small amount of subcutaneous gas in the left anterior pelvic wall, may be iatrogenic /[place] DICTATED BY: JANAE MAYS MD DATE: 04/30/251906 ELECTRONICALLY SIGNED BY: JANAE MAYS MD DATE: 04/30/251906 ASSESSMENT: Headache and fever, cause unkown, may be viral POA SIRS With acute organ dysfunction, lactic acidosis POA hyponatremia Dehydration PLAN: Headache and fever, cause unkown POA * Patient's headache and fever have stopped completely post LP * Urinalysis, Influenza, Covid and Strep were all negative. Chest x ray and head CT were unremarkable as well. * Results of blood culture are negative after 48 hours and febrile agglutinin test results are still pending. * Infectious disease consulted * On IV Zosyn and doxycycline p.o * Consult infectious disease service SIRS With acute organ dysfunction POA * Patient came in with temp over 103, Pulse 137, RR at 18 and lactic acid at 2.8 * Urinalysis, Influenza, Covid and Strep were all negative. Chest x ray and head CT were unremarkable as well. * Results of blood culture are negative after 48 hours and febrile agglutinin test results are still pending. Hyponatremia POA * Patient placed on normal saline at 125 mL/hour Dehydration * Patient has improved feeling much better and has no nausea with food or water * Patient placed on normal saline at 125 mL/hour I have seen and examined the patient, reviewed the above documentation, participated in medical decision making, made necessary modifications, and agree with the treatment plan as documented by my mid-level provider above. Garry Hodge MD, ABHINAV MD May 01, 2025 11:29
--- NOTE | 2025-05-01 18:18 | PN ---
INFECTIOUS DISEASE PROGRESS NOTE Date of Service: May 01, 2025 SUBJECTIVE: This is a 24-year-old male patient who was admitted to the hospital for evaluation of fever. On admission patient had a fever of 103.3. COVID-19, influenza and typhus results were negative. A CT of the chest showed Small area of consolidation/pneumonia left lung base not excluded. Patient underwent a lumbar puncture yesterday and no growth reported yet on the CSF body fluid culture. Patient is currently on doxycycline p.o. and Zosyn and we will continue. During rounding today patient was sitting up on the edge of the bed and denying headache or stiff neck. No nausea or vomiting. We will continue to follow patient's care. PHYSICAL EXAM EYES: Anicteric. Pupils equal and reactive. HENT: No oral thrush seen, moist Oral mucosa NECK: Supple, no JVD or thyromegaly. LUNGS: Good air entry. No rales, no rhonchi. CARDIOVASCULAR: S1, S2 regular. No murmur heard. ABDOMEN: Soft, non tender, bowel sounds present, no organomegaly CENTRAL NERVOUS SYSTEM: Awake, alert, oriented x 3. SKIN: No rashes, no swelling. LYMPHATICS: No peripheral lymphadenopathy. MUSCULOSKELETAL: No joint swelling, erythema or tenderness. EXTREMITIES: No cyanosis or clubbing. BACK: No deformity, no pressure ulcer. GENITOURINARY: No dysuria or hematuria. Vital Sign (Last 12 Hours) 05/01/25 05/01/25 08:00 12:00 Temp 98.2 98.1 Pulse 88 110 Resp 17 18 B/P (MAP) 127/75 135/84 Pulse Ox 95 98 O2 Delivery Room Air Room Air Intake & Output (last 24hrs) 04/30/25 04/30/25 05/01/25 15:00 23:00 07:00 Intake Total 300 ml Balance 300 ml LABS: Laboratory: Test 05/01/25 16:51 05/01/25 04:45 04/30/25 22:44 04/30/25 20:55 Range/Units Whole Blood Glucose 106 70-110 MG/DL White Blood Count 7.5 4.8-10.8 K/uL Red Blood Count 4.69 4.50-6.20 MIL/uL Hemoglobin 13.6 L 14.0-18.0 g/dL Hematocrit 40.8 L 42-54 % Mean Corpuscular Volume 87.0 79-99 fL Mean Corpuscular Hemoglobin 29.0 27.0-33.0 pg Mean Corpuscular Hemoglobin Concent 33.3 32.0-36.0 g/dL Red Cell Distribution Width 13.0 11.0-15.5 % Platelet Count 185 130-400 K/uL Mean Platelet Volume 11.6 H 7.5-10.5 fL Immature Granulocyte % (Auto) 0.7 0-1 % Neutrophils (%) (Auto) 60.1 40.0-77.0 % Lymphocytes (%) (Auto) 30.1 21.0-51.0 % Monocytes (%) (Auto) 8.8 3.0-13.0 % Eosinophils (%) (Auto) 0.0 0.0-8.0 % Basophils (%) (Auto) 0.3 0.0-5.0 % Neutrophils # (Auto) 4.5 1.8-7.7 K/uL Lymphocytes # (Auto) 2.3 1.0-4.8 K/uL Monocytes # (Auto) 0.7 0.1-1.0 K/uL Eosinophils # (Auto) 0.00 0.00-0.70 K/uL Basophils # (Auto) 0.02 0.00-0.20 K/uL Absolute Immature Granulocyte (auto 0.05 0-1 K/uL Nucleated Red Blood Cells 0.0 0.0-0.19 % Sodium Level 135 L 136-145 mmol/L Potassium Level 3.9 3.5-5.1 mmol/L Chloride Level 102 101-111 mmol/L Carbon Dioxide Level 23 21-32 mmol/L Blood Urea Nitrogen 12 7-18 mg/dL Creatinine 0.8 0.5-1.3 mg/dL Glomerular Filtration Rate Calc 127 >90 mL/min Random Glucose 110 H 70-105 mg/dL Hemoglobin A1c 5.6 4.0-6.0 % Estimated Average Glucose (eAG) 114 70-126 mg/dL Total Calcium 8.8 8.5-10.1 mg/dL Total Bilirubin 0.5 0.2-1.0 mg/dL Aspartate Amino Transf (AST/SGOT) 56 H 10-37 U/L Alanine Aminotransferase (ALT/SGPT) 104 H 12-78 U/L Alkaline Phosphatase 117 50-136 U/L C-Reactive Protein, Quantitative 128.70 H 0.5-3.0 mg/L Total Protein 7.5 6.0-8.3 g/dL Albumin 2.9 L 3.5-5.0 g/dL Procalcitonin 0.82 H 0.05-0.5 ng/mL Group A Streptococcus Rapid negative NEGATIVE Urine Opiates Screen NEGATIVE NEGATIVE Urine Barbiturates Screen NEGATIVE NEGATIVE Urine Phencyclidine Screen NEGATIVE NEGATIVE Urine Amphetamines Screen NEGATIVE NEGATIVE Urine Benzodiazepines Screen NEGATIVE NEGATIVE Urine Cocaine Screen NEGATIVE NEGATIVE Urine Marijuana (THC) Screen NEGATIVE NEGATIVE Test 04/30/25 18:30 04/30/25 17:45 04/30/25 16:45 Range/Units CSF Tube Number TUBE NO.3 CSF Volume 18.0 mL CSF Appearance CLEAR CLEAR CSF Color COLORLESS COLORLESS CSF WBC 2 0-5 CMM CSF RBC 14 H 0-0 CMM CSF Tube Number (Tube b) TUBE NO.4 CSF Appearance (Tube b) CLEAR CLEAR CSF Color (Tube b) COLORLESS COLORLESS CSF WBC (Tube b) 0.0 0-5 CMM CSF RBC (Tube b) 7.0 H 0-0 CMM CSF Neutrophils % (tube B) % CSF Lymphocytes % (tube b) % CSF Other Cells % (Tube b) CSF Glucose 59 40-70 mg/dL CSF Total Protein 37 15-45 mg/dL Ionized Calcium 1.13 L 1.15-1.33 MMOL/L Phosphorus Level 2.9 2.5-4.9 mg/dL Magnesium Level 1.80 1.80-2.40 mg/dL Ammonia < 10 L 11-32 umol/L Vitamin B12 Level 631 193-986 pg/mL Folic Acid (LAB) > 20.00 H 2-20 ng/mL Prothrombin Time 12.4 H 9.6-11.6 SEC Prothromb Time International Ratio 1.19 H 0.85-1.15 Activated Partial Thromboplast Time 34.5 26.3-35.5 SEC HIV (1&2) Antibody Non-Reactive Negative HIV P24 Antigen, Qualitative Non-Reactive Negative ASSESSMENT: Possible pneumonia. Possible Viral syndrome, s/p lumbar puncture, Meningitis ruled out. Possible Rickettsial infection. Elevated liver enzymes. PLAN: Continue Doxycycline p.o.. Continue Zosyn IV. Continue steroids. Continue GI prophylaxis. Continue pain management. Continue to monitor electrolytes. Discontinue droplet precaution. This case was reviewed and discussed with my supervising physician and the above assessment and plan was formulated and agreed upon. ATTESTATION BY PHYSICIAN I have seen and examined the patient. I reviewed the documentation, medical decision making, and treatment plan as noted by the mid-level provider above. I agree with the findings and plan of care. JANE WYNN MD, [facility] May 01, 2025 18:18
--- NOTE | 2025-05-01 19:20 | PN ---
[facility] PROGRESS NOTE Date Patient Seen: May 01, 2025 Time of Visit: 1152 Supervising Physician: Dr. Balderas Primary Care Physician: [Dr. Faye Palacio ] Outpatient Specialists: [ ] Inpatient Consults: [ICU-BID, ID-Dr. Miller ] PROBLEM LIST: Fever of unknown origin-POA Rule-out meningitis-POA- initial LP results was unremarkable, pending the rest of the work-up Mild hyponatremia-POA Complaints of headaches, sore throat, and light sensitivity-POA Morbid obesity PLAN: -Continue medical management with antibiotics, currently on Doxy and Zosyn -Pending LP results and blood CX report -Manage headache and fever PRN -Continue IV NS @ 125 mls/hr -follow up with right upper quadrant ultrasound INTERVAL HISTORY: 05/01 patient was seen and examined by bedside with no family present. Patient has not had any reoccurrence fevers at this time. Patient is on room air tolerating well. Patient denies any chest pain or shortness of breadth. Denies any nausea vomiting or abdominal pain. Patient noted to have elevated liver enzymes at this time we will order a right upper quadrant ultrasound and follow up with results. We will repeat patient's labs tomorrow morning and continue to monitor closely. Dispo per primary team REVIEW OF SYSTEMS: 12 point ROS reviewed with patient. Pertinent positives mentioned above. Otherwise negative. PHYSICAL EXAM: GENERAL: alert, weak, awake oriented x 3 HEENT: EOMI, Sclera non icteric, moist mucosa NECK: Supple, no JVD, trachea midline LUNGS: Clear breath sounds bilaterally. No wheezes HEART: Regular rate and rhythm. Normal S1 and S2, without murmurs ABD: Abdomen soft, nontender. Bowel sounds present EXT: No clubbing cyanosis or edema NEURO: Alert and oriented to person, follows commands Vital Signs (last 8hr) Date Time Temp Pulse Resp B/P (MAP) Pulse Ox O2 Delivery O2 Flow Rate FiO2 05/01/25 16:00 98.1 95 17 118/72 98 Room Air 05/01/25 12:00 98.1 110 18 135/84 98 Room Air LABS: Hematology Labs: Test 05/01/25 04:45 Range/Units White Blood Count 7.5 4.8-10.8 K/uL Red Blood Count 4.69 4.50-6.20 MIL/uL Hemoglobin 13.6 L 14.0-18.0 g/dL Hematocrit 40.8 L 42-54 % Mean Corpuscular Volume 87.0 79-99 fL Mean Corpuscular Hemoglobin 29.0 27.0-33.0 pg Mean Corpuscular Hemoglobin Concent 33.3 32.0-36.0 g/dL Red Cell Distribution Width 13.0 11.0-15.5 % Platelet Count 185 130-400 K/uL Mean Platelet Volume 11.6 H 7.5-10.5 fL Immature Granulocyte % (Auto) 0.7 0-1 % Neutrophils (%) (Auto) 60.1 40.0-77.0 % Lymphocytes (%) (Auto) 30.1 21.0-51.0 % Monocytes (%) (Auto) 8.8 3.0-13.0 % Eosinophils (%) (Auto) 0.0 0.0-8.0 % Basophils (%) (Auto) 0.3 0.0-5.0 % Neutrophils # (Auto) 4.5 1.8-7.7 K/uL Lymphocytes # (Auto) 2.3 1.0-4.8 K/uL Monocytes # (Auto) 0.7 0.1-1.0 K/uL Eosinophils # (Auto) 0.00 0.00-0.70 K/uL Basophils # (Auto) 0.02 0.00-0.20 K/uL Absolute Immature Granulocyte (auto 0.05 0-1 K/uL Nucleated Red Blood Cells 0.0 0.0-0.19 % Chemistry Labs: Test 05/01/25 16:51 05/01/25 04:45 04/30/25 17:45 Range/Units Whole Blood Glucose 106 70-110 MG/DL Sodium Level 135 L 136-145 mmol/L Potassium Level 3.9 3.5-5.1 mmol/L Chloride Level 102 101-111 mmol/L Carbon Dioxide Level 23 21-32 mmol/L Blood Urea Nitrogen 12 7-18 mg/dL Creatinine 0.8 0.5-1.3 mg/dL Glomerular Filtration Rate Calc 127 >90 mL/min Random Glucose 110 H 70-105 mg/dL Hemoglobin A1c 5.6 4.0-6.0 % Estimated Average Glucose (eAG) 114 70-126 mg/dL Total Calcium 8.8 8.5-10.1 mg/dL Total Bilirubin 0.5 0.2-1.0 mg/dL Aspartate Amino Transf (AST/SGOT) 56 H 10-37 U/L Alanine Aminotransferase (ALT/SGPT) 104 H 12-78 U/L Alkaline Phosphatase 117 50-136 U/L C-Reactive Protein, Quantitative 128.70 H 0.5-3.0 mg/L Total Protein 7.5 6.0-8.3 g/dL Albumin 2.9 L 3.5-5.0 g/dL Procalcitonin 0.82 H 0.05-0.5 ng/mL Ionized Calcium 1.13 L 1.15-1.33 MMOL/L Phosphorus Level 2.9 2.5-4.9 mg/dL Magnesium Level 1.80 1.80-2.40 mg/dL Ammonia < 10 L 11-32 umol/L Vitamin B12 Level 631 193-986 pg/mL Folic Acid (LAB) > 20.00 H 2-20 ng/mL Coagulation Labs: Test 04/30/25 16:45 Range/Units Prothrombin Time 12.4 H 9.6-11.6 SEC Prothromb Time International Ratio 1.19 H 0.85-1.15 Activated Partial Thromboplast Time 34.5 26.3-35.5 SEC DIAGNOSTICS / RADIOLOGY RESULTS: na PLAN NEURO: Minimize central acting medications as possible. Maintain fall precautions, adequate lighting during the day PULMONARY: Supplemental 02 as needed. Maintain aspiration precautions at all times CARDIOVASCULAR: Follow hemodynamics. Vital signs per facility protocol GI & NUTRITION: Continue with nutritional support. Continue stool softeners and laxatives as needed. KIDNEYS & ELECTROLYTES: Strict monitoring of intake, output and overall fluid balance. Avoid nephrotoxic medications to the extent possible. Medications to be dosed according to renal function. Monitor electrolytes and replace as needed ENDOCRINE: Maintain blood glucose between 100-180 at all times. Hypoglycemia protocol in place INFECTIOUS DISEASE: Trend temperature, WBC and procalcitonin level Follow cultures, deescalate antibiotics as soon as possible. Panculture if new onset fever ONCOLOGY/HEMATOLOGY/COAGULATION: Monitor for s/s of bleeding Monitor hemoglobin, coagulation studies as needed SKIN: Pressure ulcer prevention per facility protocol Specialty mattress ORTHO/REHAB: Continue PT/OT Prophylaxis: Continue GI and DVT prophylaxis Code Status: Full Resuscitation Disposition: TBNATHANAEL GODFREYP May 01, 2025 19:20
[2025-05-02 00:46] VITALS: BP 119/75; PULSE 76; RESP 20; TEMP 98
[2025-05-02 04:00] VITALS: BP 124/76; PULSE 70; RESP 19; TEMP 98
[2025-05-02 05:17] LABS: IMMATURE GRANULOCYTE ABSOLUTE 0.14 K/uL (0-1); NUCLEATED RED BLOOD CELLS 0.0 % (0.0-0.19); PLATELET COUNT (AUTO) 231 K/uL (130-400); RED BLOOD CELL COUNT(AUTO) 4.59 MIL/uL (4.50-6.20); RED CELL DISTRIBUTION WIDTH 13.3 % (11.0-15.5); WHITE BLOOD COUNT (AUTO) 9.3 K/uL (4.8-10.8)
[2025-05-02 05:23] LABS: ASPARTATE AMINOTRANSFERASE 34.0 U/L (10-37); CREATININE 0.7 mg/dL (0.5-1.3); GLOMERULAR FILTR. RATE CALC 132.0 mL/min (>90); GLUCOSE,RANDOM 130.0 mg/dL (70-105); SODIUM SERUM 139.0 mmol/L (136-145); TOTAL PROTEIN, SERUM 7.4 g/dL (6.0-8.3); UREA NITROGEN, BLOOD 15.0 mg/dL (7-18)
[2025-05-02 08:00] VITALS: BP 122/53; PULSE 64; RESP 18; TEMP 97.6
[2025-05-02 12:00] VITALS: BP 128/74; PULSE 97; RESP 18; TEMP 97.9
[2025-05-02] MEDS ORDERED: ACET-2247 PO (14:21)
[2025-05-02] MEDS ORDERED: DOXY100C5 PO (14:21)
--- NOTE | 2025-05-02 14:57 | PN ---
[facility] PROGRESS NOTE Date Patient Seen: May 02, 2025 Time of Visit: 1141 Supervising Physician: Dr. Balderas Primary Care Physician: [Dr. Faye Palacio ] Outpatient Specialists: [ ] Inpatient Consults: [ICU-BID, ID-Dr. Miller ] PROBLEM LIST: Fever of unknown origin-POA Rule-out meningitis-POA- initial LP results was unremarkable, pending the rest of the work-up Mild hyponatremia-POA Complaints of headaches, sore throat, and light sensitivity-POA Morbid obesity PLAN: -Continue medical management with antibiotics, currently on Doxy and Zosyn -Pending LP results and blood CX report -Manage headache and fever PRN -Continue IV NS @ 125 mls/hr -follow up with right upper quadrant ultrasound INTERVAL HISTORY: 05/01 patient was seen and examined by bedside with no family present. Patient has not had any reoccurrence fevers at this time. Patient is on room air tolerating well. Patient denies any chest pain or shortness of breadth. Denies any nausea vomiting or abdominal pain. Patient noted to have elevated liver enzymes at this time we will order a right upper quadrant ultrasound and follow up with results. We will repeat patient's labs tomorrow morning and continue to monitor closely. Dispo per primary team 05/02 patient was seen and examined at bedside with family present. At this time patient has not had any reoccurrence fevers. Patient remains on room air is tolerating well. Patient reports no recent travel no diarrhea no family members maintenance sick[place] Patient denies any headache or stiff neck at this time. Denies any chest pain or shortness of breadth. Denies any nausea vomiting or abdominal pain. We will continue with IV antibi otics per ID recommendations. Liver enzymes trending down. Patient currently pending right upper quadrant ultrasound to be reported. Dispo per primary team REVIEW OF SYSTEMS: 12 point ROS reviewed with patient. Pertinent positives mentioned above. Otherwise negative. PHYSICAL EXAM: GENERAL: alert, weak, awake oriented x 3 HEENT: EOMI, Sclera non icteric, moist mucosa NECK: Supple, no JVD, trachea midline LUNGS: Clear breath sounds bilaterally. No wheezes HEART: Regular rate and rhythm. Normal S1 and S2, without murmurs ABD: Abdomen soft, nontender. Bowel sounds present EXT: No clubbing cyanosis or edema NEURO: Alert and oriented to person, follows commands Vital Signs (last 8hr) Date Time Temp Pulse Resp B/P (MAP) Pulse Ox O2 Delivery O2 Flow Rate FiO2 05/02/25 12:00 97.9 97 18 128/74 97 Room Air 05/02/25 08:13 Room Air* 0 21 05/02/25 08:00 97.5 64 18 122/53 98 Room Air LABS: Hematology Labs: Test 05/02/25 04:53 Range/Units White Blood Count 9.3 4.8-10.8 K/uL Red Blood Count 4.59 4.50-6.20 MIL/uL Hemoglobin 13.4 L 14.0-18.0 g/dL Hematocrit 40.4 L 42-54 % Mean Corpuscular Volume 88.0 79-99 fL Mean Corpuscular Hemoglobin 29.2 27.0-33.0 pg Mean Corpuscular Hemoglobin Concent 33.2 32.0-36.0 g/dL Red Cell Distribution Width 13.3 11.0-15.5 % Platelet Count 231 130-400 K/uL Mean Platelet Volume 10.9 H 7.5-10.5 fL Immature Granulocyte % (Auto) 1.5 H 0-1 % Neutrophils (%) (Auto) 59.5 40.0-77.0 % Lymphocytes (%) (Auto) 31.0 21.0-51.0 % Monocytes (%) (Auto) 7.7 3.0-13.0 % Eosinophils (%) (Auto) 0.0 0.0-8.0 % Basophils (%) (Auto) 0.3 0.0-5.0 % Neutrophils # (Auto) 5.5 1.8-7.7 K/uL Lymphocytes # (Auto) 2.9 1.0-4.8 K/uL Monocytes # (Auto) 0.7 0.1-1.0 K/uL Eosinophils # (Auto) 0.00 0.00-0.70 K/uL Basophils # (Auto) 0.03 0.00-0.20 K/uL Absolute Immature Granulocyte (auto 0.14 0-1 K/uL Nucleated Red Blood Cells 0.0 0.0-0.19 % Chemistry Labs: Test 05/02/25 11:21 05/02/25 04:53 05/01/25 04:45 7/17/25 17:45 Range/Units Whole Blood Glucose 132 H 70-110 MG/DL Sodium Level 139 136-145 mmol/L Potassium Level 3.9 3.5-5.1 mmol/L Chloride Level 104 101-111 mmol/L Carbon Dioxide Level 28 21-32 mmol/L Blood Urea Nitrogen 15 7-18 mg/dL Creatinine 0.7 0.5-1.3 mg/dL Glomerular Filtration Rate Calc 132 >90 mL/min Random Glucose 130 H 70-105 mg/dL Total Calcium 8.7 8.5-10.1 mg/dL Total Bilirubin 0.4 0.2-1.0 mg/dL Aspartate Amino Transf (AST/SGOT) 34 10-37 U/L Alanine Aminotransferase (ALT/SGPT) 86 H 12-78 U/L Alkaline Phosphatase 107 50-136 U/L C-Reactive Protein, Quantitative 57.80 H 0.5-3.0 mg/L Total Protein 7.4 6.0-8.3 g/dL Albumin 2.9 L 3.5-5.0 g/dL Hemoglobin A1c 5.6 4.0-6.0 % Estimated Average Glucose (eAG) 114 70-126 mg/dL Procalcitonin 0.82 H 0.05-0.5 ng/mL Ionized Calcium 1.13 L 1.15-1.33 MMOL/L Phosphorus Level 2.9 2.5-4.9 mg/dL Magnesium Level 1.80 1.80-2.40 mg/dL Ammonia < 10 L 11-32 umol/L Vitamin B12 Level 631 193-986 pg/mL Folic Acid (LAB) > 20.00 H 2-20 ng/mL Coagulation Labs: Test 04/30/25 16:45 Range/Units Prothrombin Time 12.4 H 9.6-11.6 SEC Prothromb Time International Ratio 1.19 H 0.85-1.15 Activated Partial Thromboplast Time 34.5 26.3-35.5 SEC DIAGNOSTICS / RADIOLOGY RESULTS: na PLAN NEURO: Minimize central acting medications as possible. Maintain fall precautions, adequate lighting during the day PULMONARY: Supplemental 02 as needed. Maintain aspiration precautions at all times CARDIOVASCULAR: Follow hemodynamics. Vital signs per facility protocol GI & NUTRITION: Continue with nutritional support. Continue stool softeners and laxatives as needed. KIDNEYS & ELECTROLYTES: Strict monitoring of intake, output and overall fluid balance. Avoid nephrotoxic medications to the extent possible. Medications to be dosed according to renal function. Monitor electrolytes and replace as needed ENDOCRINE: Maintain blood glucose between 100-180 at all times. Hypoglycemia protocol in place INFECTIOUS DISEASE: Trend temperature, WBC and procalcitonin level Follow cultures, deescalate antibiotics as soon as possible. Panculture if new onset fever ONCOLOGY/HEMATOLOGY/COAGULATION: Monitor for s/s of bleeding Monitor hemoglobin, coagulation studies as needed SKIN: Pressure ulcer prevention per facility protocol Specialty mattress ORTHO/REHAB: Continue PT/OT Prophylaxis: Continue GI and DVT prophylaxis Code Status: Full Resuscitation Disposition: TBD Case discussed with supervising physician plan of care agreed upon NATHANAEL NOE [employer] May 02, 2025 14:57
--- NOTE | 2025-05-02 15:32 | NUR ---
PATIENT DISCHARGED PERIPHERAL IV DISCONTINUED WITHOUT COMPLICATIONS. CATHETER INTACT. DISCHARGE INSTRUCTIONS GIVEN. PATIENT AWARE TO F/U WITH PCP. PATIENT INSTRUCTED TO REST FOR THE DAY, CAFFEINE AND TYLENOL NEEDED FOR HEADACHE. WORK EXCUSE PROVIDED TO PATIENT. ALL QUESTIONS ANSWERED. PATIENT TAKEN DOWN BY WHEELCHAIR.
--- NOTE | 2025-05-02 15:34 | PN ---
INFECTIOUS DISEASE PROGRESS NOTE Date of Service: May 02, 2025 SUBJECTIVE: This 24 year [facility] male [facility] Awake, alert and oriented. No fever or chills. No nausea or vomiting. Patient is no distress. Patient continues on antibiotics tolerating well. No headache or stiff neck at this time. No abdominal pain, diarrhea or constipation. No dysuria or hematuria. No distress. No growth noted CSF. We continue to follow patient closely. PHYSICAL EXAM EYES: Anicteric. Pupils equal and reactive. HENT: No oral thrush seen, moist Oral mucosa NECK: Supple, no JVD or thyromegaly. LUNGS: Good air entry. No rales, no rhonchi. CARDIOVASCULAR: S1, S2 regular. No murmur heard. ABDOMEN: Soft, non tender, bowel sounds present, no organomegaly CENTRAL NERVOUS SYSTEM: Awake, alert, oriented x 3. SKIN: No rashes, no swelling. LYMPHATICS: No peripheral lymphadenopathy. MUSCULOSKELETAL: No joint swelling, erythema or tenderness. EXTREMITIES: No cyanosis or clubbing. BACK: No deformity, no pressure ulcer. GENITOURINARY: No dysuria or hematuria. Vital Sign (Last 12 Hours) 05/02/25 05/02/25 05/02/25 05/02/25 04:00 08:00 08:13 12:00 Temp 98.1 97.5 97.9 Pulse 70 64 97 Resp 18 18 B/P (MAP) 124/76 122/53 128/74 Pulse Ox 98 97 O2 Delivery Room Air Room Air Room Air* Room Air O2 Flow Rate 0.0 0 FiO2 21 Intake & Output (last 24hrs) 05/01/25 05/01/25 05/02/25 15:00 23:00 07:00 Intake Total 50.0 ml Balance 50.0 ml LABS: Laboratory: Test 05/02/25 11:21 05/02/25 04:53 05/01/25 04:45 04/30/25 22:44 Range/Units Whole Blood Glucose 132 H 70-110 MG/DL White Blood Count 9.3 4.8-10.8 K/uL Red Blood Count 4.59 4.50-6.20 MIL/uL Hemoglobin 13.4 L 14.0-18.0 g/dL Hematocrit 40.4 L 42-54 % Mean Corpuscular Volume 88.0 79-99 fL Mean Corpuscular Hemoglobin 29.2 27.0-33.0 pg Mean Corpuscular Hemoglobin Concent 33.2 32.0-36.0 g/dL Red Cell Distribution Width 13.3 11.0-15.5 % Platelet Count 231 130-400 K/uL Mean Platelet Volume 10.9 H 7.5-10.5 fL Immature Granulocyte % (Auto) 1.5 H 0-1 % Neutrophils (%) (Auto) 59.5 40.0-77.0 % Lymphocytes (%) (Auto) 31.0 21.0-51.0 % Monocytes (%) (Auto) 7.7 3.0-13.0 % Eosinophils (%) (Auto) 0.0 0.0-8.0 % Basophils (%) (Auto) 0.3 0.0-5.0 % Neutrophils # (Auto) 5.5 1.8-7.7 K/uL Lymphocytes # (Auto) 2.9 1.0-4.8 K/uL Monocytes # (Auto) 0.7 0.1-1.0 K/uL Eosinophils # (Auto) 0.00 0.00-0.70 K/uL Basophils # (Auto) 0.03 0.00-0.20 K/uL Absolute Immature Granulocyte (auto 0.14 0-1 K/uL Nucleated Red Blood Cells 0.0 0.0-0.19 % Sodium Level 139 136-145 mmol/L Potassium Level 3.9 3.5-5.1 mmol/L Chloride Level 104 101-111 mmol/L Carbon Dioxide Level 28 21-32 mmol/L Blood Urea Nitrogen 15 7-18 mg/dL Creatinine 0.7 0.5-1.3 mg/dL Glomerular Filtration Rate Calc 132 >90 mL/min Random Glucose 130 H 70-105 mg/dL Total Calcium 8.7 8.5-10.1 mg/dL Total Bilirubin 0.4 0.2-1.0 mg/dL Aspartate Amino Transf (AST/SGOT) 34 10-37 U/L Alanine Aminotransferase (ALT/SGPT) 86 H 12-78 U/L Alkaline Phosphatase 107 50-136 U/L C-Reactive Protein, Quantitative 57.80 H 0.5-3.0 mg/L Total Protein 7.4 6.0-8.3 g/dL Albumin 2.9 L 3.5-5.0 g/dL Hemoglobin A1c 5.6 4.0-6.0 % Estimated Average Glucose (eAG) 114 70-126 mg/dL Procalcitonin 0.82 H 0.05-0.5 ng/mL Group A Streptococcus Rapid negative NEGATIVE Test 04/30/25 20:55 04/30/25 18:30 04/30/25 17:45 04/30/25 16:45 Range/Units Urine Opiates Screen NEGATIVE NEGATIVE Urine Barbiturates Screen NEGATIVE NEGATIVE Urine Phencyclidine Screen NEGATIVE NEGATIVE Urine Amphetamines Screen NEGATIVE NEGATIVE Urine Benzodiazepines Screen NEGATIVE NEGATIVE Urine Cocaine Screen NEGATIVE NEGATIVE Urine Marijuana (THC) Screen NEGATIVE NEGATIVE CSF Tube Number TUBE NO.3 CSF Volume 18.0 mL CSF Appearance CLEAR CLEAR CSF Color COLORLESS COLORLESS CSF WBC 2 0-5 CMM CSF RBC 14 H 0-0 CMM CSF Tube Number (Tube b) TUBE NO.4 CSF Appearance (Tube b) CLEAR CLEAR CSF Color (Tube b) COLORLESS COLORLESS CSF WBC (Tube b) 0.0 0-5 CMM CSF RBC (Tube b) 7.0 H 0-0 CMM CSF Neutrophils % (tube B) % CSF Lymphocytes % (tube b) % CSF Other Cells % (Tube b) CSF Glucose 59 40-70 mg/dL CSF Total Protein 37 15-45 mg/dL Ionized Calcium 1.13 L 1.15-1.33 MMOL/L Phosphorus Level 2.9 2.5-4.9 mg/dL Magnesium Level 1.80 1.80-2.40 mg/dL Ammonia < 10 L 11-32 umol/L Vitamin B12 Level 631 193-986 pg/mL Folic Acid (LAB) > 20.00 H 2-20 ng/mL Prothrombin Time 12.4 H 9.6-11.6 SEC Prothromb Time International Ratio 1.19 H 0.85-1.15 Activated Partial Thromboplast Time 34.5 26.3-35.5 SEC HIV (1&2) Antibody Non-Reactive Negative HIV P24 Antigen, Qualitative Non-Reactive Negative ASSESSMENT: Possible pneumonia. Possible Viral syndrome, s/p lumbar puncture, Meningitis ruled out. Possible Rickettsial infection. Elevated liver enzymes. PLAN: Continue Doxycycline p.o.. Continue Zosyn IV. Continue steroids. Continue GI prophylaxis. Continue pain management. Continue to monitor electrolytes. Patient could be d/c on doxycycline for 5 days PO, when ready. This case was reviewed and discussed with my supervising physician and the above assessment and plan was formulated and agreed upon. BERKLEY JEAN [facility] May 02, 2025 15:34
--- NOTE | 2025-05-02 15:46 | DS ---
Discharge Summary Hospital Course Summary: Patient is a 24-year-old obese male with no significant past medical history who presented to emergency room with complaints of fever and headache for past 6 days. Fever is intermittent, responding to acetaminophen. He complained of frontal headache, throbbing in nature with mild relief with [id number] medications. As per the patient, he had spent some time at the beach prior to the onset of symptoms. He denied photophobia, neck stiffness, nausea, vomiting or focal neurological deficits, history of exposure to sick people, rash, cough, sore throat or gastrointestinal symptoms. The time of presentation, his temperature was 100.4 and the labs were remarkable for elevated p rocalcitonin(is 0.9) and C-reactive protein(CRP 81). On workup for infectious causes including urinalysis, influenza, COVID-19, strep, chest x-ray, head CT was unremarkable. The patient was empirically started on Zosyn for possible infection and admitted for further evaluation. Patient continued to have high-grade fevers to 102.7 and tachycardia. A lumbar puncture was performed to rule out meningitis. Consult from Infectious Disease and critical Care was obtained. Patient was started on doxycycline on day 2suspicion of Rickettsial infection. Blood cultures were negative. His fever subsided after initiating on doxycycline. And the headaches resolved and he was he might dynamically stable. LP results were negative and lab markers trended towards improvement. Prolactin decreased from 0.9 to 0.8 And creatinine remained stable at 0.8. By the 3rd day the patient was tolerating oral intake better. CRP went down to 57.8. Spinal fluid culture pending. Spinal fluid PCR negative for viruses. Typhoid, SARS, para typhoid, Jennifer, HIV serology tests negative. Patient will be discharged home and he is required to take oral doxycycline for5 more days. He is clinically stable at the time of discharge. Varicella IgG antibodies, spinal fluid AFB culture, spinal fluid fungal culture, CSF cryptococcus antigen, T pallidum, CSF toxoplasma, typhus Murine IgG antibody pending results. Doweler(s): INFECTIOUS DISEASE CONSULTATION NOTE HISTORY OF PRESENT ILLNESS: Patient is a 24-year-old male with no pertinent past medical history, who presented to the emergency room with a 6 day history of fever and headache. The fever is described as intermittent in frequency, responsive to acetaminophen. He also reports a diffuse throbbing headache that began on the 1st day of illness and has progressively worsened. The headache is rated as 9/10 in intensity located predominantly in the frontal region without radiation. It is mildly relieved by aqiv-mbp-whsryfh medications. He denies photophobia, neck stiffness, nausea, vomiting or focal neurological symptoms. He also denies recent sick contacts, but he did return from a trip to the beach prior to the onset of the symptoms. Denies any rash, cough, sore throat or gastrointestinal symptoms. Denies any past medical problems and only takes Tylenol as needed. He does not smoke, drink alcohol or use drugs. Patient states that the intensity of the headache worsened yesterday so he was sent to the emergency room by his PCP for evaluation and management. On evaluation, patient remains febrile with a temperature of 100.4 , all other vital signs were unremarkable. Labs showed a WBC of 5.5, procalcitonin and CRP were elevated at 0.9 and 81 respectively. Urinalysis, Influenza, Covid and Strep were all negative. Chest x ray and head CT were unremarkable as well. Results of urine culture, blood culture and febrile agglutinin test are still pending. Patient is currently on Zosyn 3.375mg IV. Will order Murine thyphus in order to rule out Rickettsia as a cause of the fever. Will start patient on Doxycycline 100mg PO BID as well. REVIEW OF SYSTEMS CONSTITUTIONAL: fever, chills, or fatigue. HEAD/FACE: Headache No signs of trauma. EENT: Denies eye pain, blurred vision, double vision, or light sensitivity. RESPIRATORY: Denies shortness of breath, cough, wheezing CARDIOVASCULAR: Denies chest pain, palpitation, syncope GASTROINTESTINAL/ABDOMINAL: Denies abdominal pain, constipation, diarrhea, nausea or vomiting GENITOURINARY: Denies dysuria or hematuria. MUSCULOSKELETAL: Denies joint pain, tenderness, or trauma. INTEGUMENTARY: Denies rash or itchiness NEUROLOGICAL/PSYCH: Denies anxiety, depression, heat or cold intolerance. PAST MEDICAL HISTORY: None PAST SURGICAL HISTORY: None PAST SOCIAL HISTORY: Denies smoking, drinking alcohol or use of illegal drugs FAMILY HISTORY: Mother and sister have Bronchial asthma. Coded Allergies: No Known Drug Allergies (Unverified Allergy, Unknown, 12/10/21) PHYSICAL EXAM EYES: Anicteric. Pupils equal and reactive. HENT: No oral thrush seen, moist Oral mucosa NECK: Supple, no JVD or thyromegaly. LUNGS: Good air entry. No rales, no rhonchi. CARDIOVASCULAR: S1, S2 regular. No murmur heard. ABDOMEN: Soft, non tender, bowel sounds present, no organomegaly CENTRAL NERVOUS SYSTEM: Awake, alert, oriented x 3. No focal deficits. SKIN: No rashes, no swelling. LYMPHATICS: No peripheral lymphadenopathy MUSCULOSKELETAL: No joint swelling, erythema or tenderness. EXTREMITIES: No cyanosis or clubbing BACK: No deformity, no pressure ulcer. GENITOURINARY: No dysuria or hematuria Vital Sign (Last 24 Hours) 04/29/25 04:23 Temp 100.8 Pulse 96 Resp 16 B/P (MAP) 119/74 Pulse Ox 98 O2 Delivery Room Air* O2 Flow Rate 0 FiO2 21 LABS: Laboratory: Test 04/29/25 07:08 04/28/25 23:33 04/28/25 19:53 04/28/25 18:29 Range/Units White Blood Count 5.5 4.8-10.8 K/uL Red Blood Count 4.62 4.50-6.20 MIL/uL Hemoglobin 13.5 L 14.0-18.0 g/dL Hematocrit 40.0 L 42-54 % Mean Corpuscular Volume 86.6 79-99 fL Mean Corpuscular Hemoglobin 29.2 27.0-33.0 pg Mean Corpuscular Hemoglobin Concent 33.8 32.0-36.0 g/dL Red Cell Distribution Width 13.2 11.0-15.5 % Platelet Count 180 130-400 K/uL Mean Platelet Volume 10.9 H 7.5-10.5 fL Immature Granulocyte % (Auto) 0.5 0-1 % Neutrophils (%) (Auto) 69.6 40.0-77.0 % Lymphocytes (%) (Auto) 23.0 21.0-51.0 % Monocytes (%) (Auto) 6.5 3.0-13.0 % Eosinophils (%) (Auto) 0.0 0.0-8.0 % Basophils (%) (Auto) 0.4 0.0-5.0 % Neutrophils # (Auto) 3.9 1.8-7.7 K/uL Lymphocytes # (Auto) 1.3 1.0-4.8 K/uL Monocytes # (Auto) 0.4 0.1-1.0 K/uL Eosinophils # (Auto) 0.00 0.00-0.70 K/uL Basophils # (Auto) 0.02 0.00-0.20 K/uL Absolute Immature Granulocyte (auto 0.03 0-1 K/uL Nucleated Red Blood Cells 0.0 0.0-0.19 % Sodium Level 135 L 136-145 mmol/L Potassium Level 4.1 3.5-5.1 mmol/L Chloride Level 100 L 101-111 mmol/L Carbon Dioxide Level 29 21-32 mmol/L Blood Urea Nitrogen 12 7-18 mg/dL Creatinine 0.9 0.5-1.3 mg/dL Glomerular Filtration Rate Calc 122 >90 mL/min Random Glucose 106 H 70-105 mg/dL Total Calcium 8.4 L 8.5-10.1 mg/dL Phosphorus Level 2.1 L 2.5-4.9 mg/dL Magnesium Level 1.60 L 1.80-2.40 mg/dL Lactic Acid Level 1.3 0.8-2.5 mmol/L C-Reactive Protein, Quantitative 81.00 H 0.5-3.0 mg/L Procalcitonin 0.90 H 0.05-0.5 ng/mL Urine Color YELLOW YELLOW Urine Appearance CLEAR CLEAR Urine pH 5.5 5.0-8.0 Urine Specific [place] 1.028 1.001-1.031 Urine Protein 30 H NEGATIVE mg/dL Urine Glucose (UA) NEGATIVE NEGATIVE mg/dL Urine Ketones NEGATIVE NEGATIVE mg/dL Urine Occult Blood SMALL H NEGATIVE Urine Nitrate NEGATIVE NEGATIVE Urine Bilirubin NEGATIVE NEGATIVE mg/dL Urine Urobilinogen 3 H 0.2-1.0 mg/dL Urine Leukocyte Esterase NEGATIVE NEGATIVE Roberto/uL Urine RBC 2-5 H 0-1 /HPF Urine WBC 2-5 H 0-1 /HPF Urine Bacteria RARE None Seen /HPF Influenza Type A Antigen Negative For Type A NEGATIVE Influenza Type B Antigen Negative For Type B NEGATIVE SARS-CoV-2 Antigen (Rapid) PRESUMPTIVE NEGATIVE NEGATIVE Group A Streptococcus Rapid negative NEGATIVE Test 04/28/25 17:50 Range/Units Total Bilirubin 0.5 0.2-1.0 mg/dL Direct Bilirubin 0.1 0.0-0.3 mg/dL Aspartate Amino Transf (AST/SGOT) 52 H 10-37 U/L Alanine Aminotransferase (ALT/SGPT) 85 H 12-78 U/L Alkaline Phosphatase 127 50-136 U/L Total Protein 8.4 H 6.0-8.3 g/dL Albumin 3.5 3.5-5.0 g/dL Lipase 37 16-77 U/L DIAGNOSTICS / RADIOLOGY: PATIENT: SONA GRACE MR#: [id number] : 2000 SEX: M AGE: 24 LOCATION: [facility] ORDER 28 STATUS: REG ER REPORT#: [id number] SERVICE 27 REASON: Headache ORDERING PHYSICIAN: CANDY BYRNE PROCEDURE: HEAD WO - CT HEAD/BRAIN W/O CONTRAST EXAM: CT Head Without IV contrast. CLINICAL HISTORY: Headache TECHNIQUE: Axial computed tomography images of the head/brain without intravenous contrast. CT scan done according to ALARA (as low as reasonably achievable). COMPARISON: None provided. FINDINGS: BRAIN: No evidence of acute hemorrhage. No mass lesion. No CT evidence for acute territorial infarct. No midline shift or extra-axial collections. VENTRICLES: No hydrocephalus. ORBITS: The orbits are unremarkable. SINUSES AND MASTOIDS: The paranasal sinuses and mastoid air cells are clear. BONES: No fracture. SOFT TISSUES: Unremarkable. IMPRESSION: No acute intracranial abnormality. /[place] DICTATED BY: RAYNE CHANEL MD DATE: 04/28/252107 ELECTRONICALLY SIGNED BY: RAYNE CHANEL MD DATE: 04/28/252107 PATIENT: SONA GRACE MR#: [id number] : 2000 SEX: M AGE: 24 LOCATION: [facility] ORDER 33 STATUS: REG ER REPORT#: [id number] SERVICE 30 REASON: Fever ORDERING PHYSICIAN: CANDY BYRNE PROCEDURE: CXR1VW - CHEST 1VW EXAM: CR Chest, 1 View. CLINICAL HISTORY: Fever COMPARISON: None provided. FINDINGS: LUNGS: There is no mass, infiltrate, or acute pulmonary abnormality. PLEURAL SPACES: No evidence of pleural effusion or pneumothorax. MEDIASTINUM: The cardiomediastinal silhouette is within normal limits. BONES: No aggressive appearing osseous lesion seen. IMPRESSION: No acute cardiopulmonary pathology is evident. /[place] DICTATED BY: WOODROW MEDINA Jr., MD DATE: 04/28/252109 ELECTRONICALLY SIGNED BY: WOODROW MEDINA Jr., MD DATE: 04/28/252109 ASSESSMENT: Possible Viral syndrome POA Possible Rickettsial infection POA Elevated liver enzymes PLAN: *Doxycycline 100mg PO BID ordered. *Continue with Zosyn 3.375g IV as ordered. *Murine Thyphus ordered to rule out Rickettsia as a cause of fever. *Pending urine and blood culture results *Pending febrile agglutinin results. *Consult infectious disease service, Dr. Miller for evaluation and further recommendations. *GI prophylaxis, famotidine *DVT prophylaxis, Lovenox ATTESTATION BY PHYSICIAN I have seen and examined the patient. I reviewed the documentation, medical decision making, and treatment plan as noted by the resident provider above. I agree with the findings and plan of care. Addy Miller MD, OBI,SARAHI De La Cruz MD Apr 29, 2025 09:59 Electronically Signed by: SARAHI De La Cruz OBI, MD04/30/25 170 Electronically Co-Signed by: PROBLEM LIST: Fever of unknown origin-POA Rule-out meningitis-POA- initial LP results was unremarkable, pending the rest of the work-up Mild hyponatremia-POA Complaints of headaches, sore throat, and light sensitivity-POA Morbid obesity PLAN: -Continue medical management with antibiotics, currently on Doxy and Zosyn -Pending LP results and blood CX report -Manage headache and fever PRN -Continue IV NS @ 125 mls/hr -Obtain HIV, strep A, thiamine, folic acid levels and varicella screen [facility] CONSULTATION NOTE HPI: [Patient is a morbidly obese 24-year-old male who denies any significant medical history who came to the hospital complaining of persistent fever x 7 days with accompanying symptoms of headaches, dry heaving and light sensitivity. He claims that he had a recent visit in [facility]. When he got home, he took some nap and then he woke up with a headache followed by the symptoms stated above. He denies any recent out-of-town travel or getting sick. His admission work-up included sepsis and to rule-out meningitis. He was given IV fluids, Doxycycline and Zosyn. I.D. specialist was consulted and patient just completed LP prior to my visit. Physical assessment was unrevealing, he was laying flat on the bed after the LP procedure. He denies any paralysis, numbness, or other focal neurologic deficits. Goals of care were discussed with the patient, verbalizing understanding and agreement. PAST MEDICAL HX: see above PAST SURGICAL HX: noncontributory SOCIAL HISTORY: No tobacco, ETOH, or illicit drug use Coded Allergies: No Known Drug Allergies (Unverified Allergy, Unknown, 12/10/21) REVIEW OF SYSTEMS: 12 point ROS reviewed with patient. Pertinent positives mentioned above. Otherwise negative. PHYSICAL EXAM: GENERAL: alert, weak, awake oriented x 3 HEENT: EOMI, Sclera non icteric, moist mucosa NECK: Supple, no JVD, trachea midline LUNGS: Clear breath sounds bilaterally. No wheezes HEART: Regular rate and rhythm. Normal S1 and S2, without murmurs ABD: Abdomen soft, nontender. Bowel sounds present EXT: No clubbing cyanosis or edema NEURO: Alert and oriented to person, follows commands Vital Signs (last 8hr) Date Time Temp Pulse Resp B/P (MAP) Pulse Ox O2 Delivery O2 Flow Rate FiO2 04/30/25 20:00 98.1 99 20 117/65 97 Room Air 04/30/25 18:47 98 20 116/62 96 Room Air 04/30/25 18:45 99 20 120/65 96 Room Air 04/30/25 18:41 104 18 119/67 96 Room Air 04/30/25 18:39 95 20 113/65 96 Room Air 04/30/25 18:35 109 20 118/67 96 Room Air 04/30/25 18:31 114 20 122/71 96 Room Air 04/30/25 18:29 123 20 115/71 96 Room Air 04/30/25 18:27 123 20 122/68 96 Room Air 04/30/25 18:25 117 20 125/69 96 Room Air 04/30/25 18:23 123 20 125/69 96 Room Air 04/30/25 18:21 119 20 128/77 97 Room Air 04/30/25 16:00 102.0 112 22 179/77 96 Room Air LABS: Hematology Labs: Test 04/30/25 05:19 04/29/25 07:08 Range/Units White Blood Count 7.4 # 4.8-10.8 K/uL Red Blood Count 4.65 4.50-6.20 MIL/uL Hemoglobin 13.7 L 14.0-18.0 g/dL Hematocrit 40.4 L 42-54 % Mean Corpuscular Volume 86.9 79-99 fL Mean Corpuscular Hemoglobin 29.5 27.0-33.0 pg Mean Corpuscular Hemoglobin Concent 33.9 32.0-36.0 g/dL Red Cell Distribution Width 12.9 11.0-15.5 % Platelet Count 158 130-400 K/uL Mean Platelet Volume 10.7 H 7.5-10.5 fL Nucleated Red Blood Cells 0.0 0.0-0.19 % Immature Granulocyte % (Auto) 0.5 0-1 % Neutrophils (%) (Auto) 69.6 40.0-77.0 % Lymphocytes (%) (Auto) 23.0 21.0-51.0 % Monocytes (%) (Auto) 6.5 3.0-13.0 % Eosinophils (%) (Auto) 0.0 0.0-8.0 % Basophils (%) (Auto) 0.4 0.0-5.0 % Neutrophils # (Auto) 3.9 1.8-7.7 K/uL Lymphocytes # (Auto) 1.3 1.0-4.8 K/uL Monocytes # (Auto) 0.4 0.1-1.0 K/uL Eosinophils # (Auto) 0.00 0.00-0.70 K/uL Basophils # (Auto) 0.02 0.00-0.20 K/uL Absolute Immature Granulocyte (auto 0.03 0-1 K/uL Chemistry Labs: Test 04/30/25 17:45 04/30/25 05:19 04/29/25 14:28 04/29/25 09:27 Range/Units Sodium Level 132 L 136-145 mmol/L Potassium Level 4.3 3.5-5.1 mmol/L Chloride Level 97 L 101-111 mmol/L Carbon Dioxide Level 24 21-32 mmol/L Blood Urea Nitrogen 14 7-18 mg/dL Creatinine 0.9 0.5-1.3 mg/dL Glomerular Filtration Rate Calc 122 >90 mL/min Random Glucose 122 H 70-105 mg/dL Total Calcium 8.9 8.5-10.1 mg/dL Ionized Calcium 1.13 L 1.15-1.33 MMOL/L Phosphorus Level 2.9 2.5-4.9 mg/dL Magnesium Level 1.80 1.80-2.40 mg/dL Ammonia < 10 L 11-32 umol/L Vitamin B12 Level 631 193-986 pg/mL Folic Acid (LAB) > 20.00 H 2-20 ng/mL C-Reactive Protein, Quantitative 118.50 H 0.5-3.0 mg/L Lactic Acid Level 1.2 0.8-2.5 mmol/L Procalcitonin 0.99 H 0.05-0.5 ng/mL Coagulation Labs: Test 04/30/25 16:45 Range/Units Prothrombin Time 12.4 H 9.6-11.6 SEC Prothromb Time International Ratio 1.19 H 0.85-1.15 Activated Partial Thromboplast Time 34.5 26.3-35.5 SEC DIAGNOSTICS / RADIOLOGY RESULTS: [ ] PLAN NEURO: Minimize central acting medications as possible. Maintain fall precautions, adequate lighting during the day PULMONARY: Supplemental 02 as needed. Maintain aspiration precautions at all times CARDIOVASCULAR: Follow hemodynamics. Vital signs per facility protocol GI & NUTRITION: Continue with nutritional support. Continue stool softeners and laxatives as needed. KIDNEYS & ELECTROLYTES: Strict monitoring of intake, output and overall fluid balance. Avoid nephrotoxic medications to the extent possible. Medications to be dosed according to renal function. Monitor electrolytes and replace as needed ENDOCRINE: Maintain blood glucose between 100-180 at all times. Hypoglycemia protocol in place INFECTIOUS DISEASE: Trend temperature, WBC and procalcitonin level Follow cultures, deescalate antibiotics as soon as possible. Panculture if new onset fever ONCOLOGY/HEMATOLOGY/COAGULATION: Monitor for s/s of bleeding Monitor hemoglobin, coagulation studies as needed SKIN: Pressure ulcer prevention per facility protocol Specialty mattress ORTHO/REHAB: Continue PT/OT Prophylaxis: Continue GI and DVT prophylaxis Code Status: Full Resuscitation Disposition: TBD STEFANY OLMOS AGPCNP Apr 30, 2025 21:49 Electronically Signed by: STEFANY OLMOS GXCTEO55/18/25 0105 Electronically Co-Signed by: TAMRA JEROME MD05/02/25 1237 Procedure(s): PROCEDURE: CXR1VW - CHEST 1VW EXAM: CR Chest, 1 View. CLINICAL HISTORY: Fever COMPARISON: None provided. FINDINGS: LUNGS: There is no mass, infiltrate, or acute pulmonary abnormality. PLEURAL SPACES: No evidence of pleural effusion or pneumothorax. MEDIASTINUM: The cardiomediastinal silhouette is within normal limits. BONES: No aggressive appearing osseous lesion seen. IMPRESSION: No acute cardiopulmonary pathology is evident. /[place] DICTATED BY: WOODROW MEDINA Jr., MD DATE: 04/28/252109 ELECTRONICALLY SIGNED BY: WOODROW MEDINA Jr., MD DATE: 04/28/252109 PROCEDURE: HEAD WO - CT HEAD/BRAIN W/O CONTRAST EXAM: CT Head Without IV contrast. CLINICAL HISTORY: Headache TECHNIQUE: Axial computed tomography images of the head/brain without intravenous contrast. CT scan done according to ALARA (as low as reasonably achievable). COMPARISON: None provided. FINDINGS: BRAIN: No evidence of acute hemorrhage. No mass lesion. No CT evidence for acute territorial infarct. No midline shift or extra-axial collections. VENTRICLES: No hydrocephalus. ORBITS: The orbits are unremarkable. SINUSES AND MASTOIDS: The paranasal sinuses and mastoid air cells are clear. BONES: No fracture. SOFT TISSUES: Unremarkable. IMPRESSION: No acute intracranial abnormality. /[place] DICTATED BY: RAYNE CHANEL MD DATE: 04/28/252107 ELECTRONICALLY SIGNED BY: RAYNE CHANEL MD DATE: 04/28/252107 PROCEDURE: CAP WWO - CT CHEST/ABD/PELV W/WO CONTRAS EXAM: CT Chest with and without Intravenous Contrast. CT Abdomen and Pelvis with and without Intravenous Contrast CLINICAL HISTORY: fever TECHNIQUE: Axial computed tomography images of the chest, abdomen and pelvis with and without intravenous contrast. CONTRAST: None. COMPARISON: None provided. FINDINGS: CHEST: There are small bilateral pleural effusions and bibasilar atelectasis there is a 1.1 cm pleural-based superior segment right lower lung pulmonary nodule best seen on series 4 image #[id number] HEART: No cardiomegaly. No significant pericardial effusion. LYMPH NODES: No lymphadenopathy is evident. ABDOMEN AND PELVIS: LIVER: Unremarkable. No focal lesions. GALLBLADDER AND BILE DUCTS: The gallbladder appears within normal limits. No radioopaque gallstones are seen. No biliary ductal dilatation is evident. PANCREAS: Unremarkable. SPLEEN: Unremarkable. Small medial splenule ADRENAL GLANDS: Unremarkable. KIDNEYS, URETERS, AND BLADDER: Unremarkable. No hydronephrosis or nephrolithiasis. No ureteral or bladder calculi. STOMACH AND BOWEL: Unremarkable appearance of the stomach and bowel. No evidence of bowel obstruction. No evidence suggesting enteritis or colitis. APPENDIX: No evidence of acute appendicitis on CT examination. PERITONEUM: No free fluid. No free air. REPRODUCTIVE: Unremarkable. LYMPH NODES: No lymphadenopathy is evident. VASCULATURE: No evidence of abdominal aortic aneurysm. BONES: No acute osseous abnormality. Small amount of gas present within the subcutaneous fat of the left anterior pelvic wall may be iatrogenic. IMPRESSION: 1. Small bilateral pleural effusions with bibasilar atelectasis. Small area of consolidation/pneumonia left lung base not excluded. 2. 1.1 cm pleural-based nodule in the superior segment of the right lower lobe 3. Small amount of subcutaneous gas in the left anterior pelvic wall, may be iatrogenic /[facility] DICTATED BY: JANAE MAYS MD DATE: 04/30/251906 ELECTRONICALLY SIGNED BY: JANAE MAYS MD DATE: 04/30/251906 Assessment/Plan: Discharge diagnosis: Fever of unknown origin, POA-most likely rickettsial infection Meningitis ruled out Sepsis, POA ruled in Pneumonia ruled out Hyponatremia resolved Dehydration, resolved Acute kidney injury, POA Lactic acidosis, POA Post lumbar puncture headache, expected Assessment Fever of unknown origin POA-most likely rickettsial infection * Fever and headache subsided * Urinalysis, Influenza, Covid and Strep were all negative. Chest x ray and head CT were unremarkable as well. * Results of blood culture are negative after 48 hours and febrile agglutinin test negative * Treated with IV Zosyn and oral doxycycline * To continue oral doxycycline for 5 more days * Pending typhus titer Sepsis ruled in POA * Patient came in with temp over 103, Pulse 137, RR at 18 and lactic acid at 2.8 * Urinalysis, Influenza, Covid and Strep were all negative. Chest x ray and head CT were unremarkable as well. * Results of blood culture are negative after 48 hours and febrile agglutinin test results are still pending. Post lumbar puncture headache, expected * Patient complained of mild headache after the spinal tap * Maintain hydration * Continue to take bedrest and lay flat till the headache resolves * Continue caffeine. Tylenol for pain as needed Discharge Instructions: DATE OF ADMISSION: 04/28/2025 DATE OF DISCHARGE: 05/02/2025 DISPOSITION: Home CONDITION: Medically stable CONSULTANTS: Infectious Disease, critical Care FOLLOW UP APPOINTMENTS: Follow up with your primary care doctor in 2 to 3 days . PROCEDURES: Lumbar puncture IMAGING: report attached to summary MICROBIOLOGY: report attached to summary HOME MEDICATIONS: see med rec NEW MEDICATIONS: See medication reconciliation EMERGENCY INSTRUCTIONS: The patient was instructed to present to the nearest Emergency department or call 911 once their symptoms will return or worsen. Home Medications: Active Scripts Acetaminophen (Tylenol) 325 Mg Tablet, 650 MG PO TID PRN for PAIN for 3 Days, #6 TAB 0 Refills Prov:LUIS FARAH MD 05/02/25 Doxycycline Hyclate (Doxycycline Hyclate) 100 Mg Capsule, 1 CAP PO BID for 5 Days, #10 CAP 0 Refills Prov:LUIS FARAH MD 05/02/25 Discontinued Scripts Epinephrine (Epipen 2-Abisai) 0.3 Mg/0.3 Ml Auto.injct, 0.3 MG IJ as needed, #2 CARTRIDGE Prov:EVA JEAN 12/10/21 Cetirizine HCl (Zyrtec Syrup 1 mg/1 ml) 1 Mg/1 Ml Solution, 10 MG PO BID for 5 Days, #120 ML Prov:EVA JEAN 12/10/21 Famotidine (Pepcid) 20 Mg Tablet, 20 MG PO BID, #30 TAB Prov:EVA JEAN 12/10/21 Prednisone (Prednisone) 20 Mg Tablet, 2 TAB PO AD for 5 Days, #10 TAB 0 Refills TAKE 1 TAB BY MOUTH THREE TIMES PER DAY X3 DAYS, THEN TAKE 1 TAB BY MOUTH TWICE A DAY X2 DAYS, THEN TAKE 1 TAB BY MOUTH ONCE A DAY X1 DAY. Prov:EVA JEAN 12/10/21 New Medications: Acetaminophen (Tylenol) 325 Mg Tablet 650 MG PO TID PRN for PAIN for 3 Days, #6 TAB 0 Refills Doxycycline Hyclate (Doxycycline Hyclate) 100 Mg Capsule 1 CAP PO BID for 5 Days, #10 CAP 0 Refills Discontinued Medications: Cetirizine HCl (Zyrtec Syrup 1 mg/1 ml) 1 Mg/1 Ml Solution 10 MG PO BID for 5 Days, #120 ML Epinephrine (Epipen 2-Abisai) 0.3 Mg/0.3 Ml Auto.injct 0.3 MG IJ as needed, #2 CARTRIDGE Famotidine (Pepcid) 20 Mg Tablet 20 MG PO BID, #30 TAB Prednisone (Prednisone) 20 Mg Tablet 2 TAB PO AD for 5 Days, #10 TAB 0 Refills TAKE 1 TAB BY MOUTH THREE TIMES PER DAY X3 DAYS, THEN TAKE 1 TAB BY MOUTH TWICE A DAY X2 DAYS, THEN TAKE 1 TAB BY MOUTH ONCE A DAY X1 DAY. Time spent arranging discharge: 1-30 minutes ATTESTATION BY PHYSICIAN I have seen and examined the patient. I reviewed the documentation, medical decision making, and treatment plan as noted by the resident provider above. I agree with the findings and plan of care. Belle Castañeda MD, ANCHU A MD May 02, 2025 15:46
--- NOTE | 2025-05-03 08:51 | HMCIMG ---
EXAMINATION: ULTRASOUND OF THE ABDOMEN (LIMITED) WITH COLOR DOPPLER. CLINICAL HISTORY: Elevated liver enzymes. COMPARISON: CT of the chest abdomen and pelvis with contrast dated 04/30/2025. TECHNIQUE: Real-time grayscale ultrasound images of the abdomen. In addition, color Doppler is medically necessary to perform in order to evaluate vascularity and blood flow. FINDINGS: Liver: Bulky in caliber, the right hepatic lobe measures 16.9 cm in the craniocaudal dimension. There is increased echogenicity of the hepatic parenchyma. There is no focal hepatic abnormality or intrahepatic biliary ductal dilatation. There is normal spectral Doppler of the main portal vein. Gallbladder: Within normal limits with normal wall thickness (0.23 cm). No hyperemia or pericholecystic free fluid. There is no cholelithiasis. Common bile duct is normal in caliber, measuring 0.67 cm. Pancreas: Obscured by overlying bowel gas. The right kidney is normal in caliber, the right kidney measures 10.1 x 4.6 x 4.3 cm in its craniocaudal, AP, and transverse dimensions respectively. There is normal renal cortical thickness, and cortical echogenicity. There is no renal calculus or hydronephrosis. IMPRESSION: Hepatomegaly with hepatic steatosis. /Andrei
== END 2025-05-02 15:30 | disposition home or self-care (01) | DRG 872 ==
LOC: EDH 16:42 → EDHIP 16:43 → 4BH 04-29 22:24 → 4CH 04-30 17:10
PROVIDERS: ADMIT Internal Medicine; ATTEND Internal Medicine
DX: A41.9 Sepsis, unspecified organism (principal); E87.20 Acidosis, unspecified; E87.1 Hypo-osmolality and hyponatremia; N17.9 Acute kidney failure, unspecified; J98.11 Atelectasis; A79.89 Other specified rickettsioses; E86.0 Dehydration; E66.01 Morbid (severe) obesity due to excess calories; G97.1 Other reaction to spinal and lumbar puncture; Z82.5 Family history of asthma and other chronic lower respiratory diseases; Z51.5 Encounter for palliative care
CPT/HCPCS: 36415; 70450; 71045; 71270; 74178; 76705; 80048; 80053; 80076; 80305; 81001; 82140; 82330; 82607; 82746; 82945; 82948; 83036; 83605; 83690; 83735; 84100; 84145; 84157; 84425; 85025; 85027; 85610; 85730; 86000; 86140; 86592; 86641; 86701; 86757; 86780; 86787; 87040; 87071; 87101; 87116; 87205; 87206; 87252; 87390; 87426; 87483; 87496; 87529; 87798; 87804; 87880; 89051; 99285; G0378; J1650; J1885; J2405; J2543; J2919; J7030; Q9967